=== PATIENT | male | born 1975 | race African-American/Black ===

== ENCOUNTER → 2018-03-28 | Outpatient (REF) | payer OTHER ==
[2018-03-28 21:07] LABS: ALBUMIN 4.4 GM/DL (3.2-5.2); ALBUMIN/GLOBULIN RATIO 1.29 (1.00-1.93); ALKALINE PHOSPHATASE 59 U/L (45-117); ALT/SGPT 67 U/L (12-78); ANION GAP 8 MEQ/L (8-16); AST/SGOT 29 U/L (7-37); BILIRUBIN,TOTAL 0.8 MG/DL (0.2-1.0); BLOOD UREA NITROGEN 13 MG/DL (7-18); CALCIUM LEVEL 8.7 MG/DL (8.5-10.1); CARBON DIOXIDE LEVEL 30 MEQ/L (21-32); CHLORIDE LEVEL 103 MEQ/L (98-107); CREATININE FOR GFR 1.13 MG/DL (0.70-1.30); GLOMERULAR FILTRATION RATE > 60.0 (>60); GLUCOSE, FASTING 101 MG/DL (70-100); SODIUM LEVEL 141 MEQ/L (136-145); TOTAL PROTEIN 7.8 GM/DL (6.4-8.2)
[2018-03-28 21:11] LABS: BASO % 0.7 % (0.0-1.0); EOS # 0.3 10^3/uL (0.0-0.50); EOS % 6.1 % (0.0-3.0); HEMATOCRIT 42.2 % (42.0-52.0); HEMOGLOBIN 13.9 g/dl (13.5-17.5); LYMPH # 2.4 10^3/uL (1.5-4.5); LYMPH % 54.1 % (24.0-44.0); MEAN CORPUSCULAR HEMOGLOBIN 27.2 pg (27.0-33.0); MEAN CORPUSCULAR HGB CONC 32.9 g/dl (32.0-36.5); MEAN CORPUSCULAR VOLUME 82.6 fl (80.0-96.0); MONO # 0.4 10^3/uL (0.0-0.8); NEUTROPHILS # 1.3 10^3/uL (1.8-7.7); NEUTROPHILS % 30.1 % (36.0-66.0); PLATELET COUNT, AUTOMATED 159 10^3/uL (150-450); RED BLOOD COUNT 5.11 10^6/uL (4.30-6.10); RED CELL DISTRIBUTION WIDTH 13.4 % (11.5-14.5); WHITE BLOOD COUNT 4.4 10^3/uL (4.0-10.0)
[2018-04-01 08:06] LABS: OXCARBAZEPINE None Detected ug/mL (10-35)
== END ==
LOC: M LABNEURO 14:13
DX: R25.8 Other abnormal involuntary movements (principal); G40.009 Localization-related (focal) (partial) idiopathic epilepsy and epileptic syndromes with seizures of localized onset, not intractable, without status epilepticus
CPT/HCPCS: 80053

== ENCOUNTER → 2018-07-26 | Outpatient (CLI) | payer OTHER | LOC: M PAIN 15:45 | DX: M47.816 Spondylosis without myelopathy or radiculopathy, lumbar region (principal); G89.29 Other chronic pain; G40.909 Epilepsy, unspecified, not intractable, without status epilepticus; G47.33 Obstructive sleep apnea (adult) (pediatric); Z79.899 Other long term (current) drug therapy; Z86.69 Personal history of other diseases of the nervous system and sense organs; Z87.891 Personal history of nicotine dependence | CPT/HCPCS: G0463 ==

== ENCOUNTER → 2018-08-02 | Outpatient (CLI) | payer OTHER | LOC: M PAIN 15:00 | DX: M47.816 Spondylosis without myelopathy or radiculopathy, lumbar region (principal); G89.29 Other chronic pain; D18.00 Hemangioma unspecified site; G40.909 Epilepsy, unspecified, not intractable, without status epilepticus; G47.33 Obstructive sleep apnea (adult) (pediatric); Z79.899 Other long term (current) drug therapy; Z86.69 Personal history of other diseases of the nervous system and sense organs; Z87.891 Personal history of nicotine dependence | CPT/HCPCS: G0463 ==

== ENCOUNTER → 2018-08-16 | Outpatient (CLI) | payer OTHER | LOC: M PAIN 14:45 | DX: M47.816 Spondylosis without myelopathy or radiculopathy, lumbar region (principal); G89.29 Other chronic pain; D18.00 Hemangioma unspecified site; G47.33 Obstructive sleep apnea (adult) (pediatric); Z79.899 Other long term (current) drug therapy; Z86.69 Personal history of other diseases of the nervous system and sense organs; Z87.891 Personal history of nicotine dependence | CPT/HCPCS: G0463 ==

== ENCOUNTER → 2018-09-03 | Outpatient (CLI) | payer OTHER | LOC: M RAD 09:34 | DX: M51.26 Other intervertebral disc displacement, lumbar region (principal); M51.27 Other intervertebral disc displacement, lumbosacral region | CPT/HCPCS: 72131 ==

== ENCOUNTER → 2018-09-05 | Outpatient (CLI) | payer OTHER | LOC: M PAIN 09:45 | DX: Z53.29 Procedure and treatment not carried out because of patient's decision for other reasons (principal) ==

== ENCOUNTER → 2018-10-03 | Outpatient (REF) | payer OTHER ==
[2018-10-03 13:57] LABS: BASO % 0.3 % (0.0-1.0); EOS # 0.1 10^3/uL (0.0-0.50); EOS % 2.1 % (0.0-3.0); HEMATOCRIT 42.1 % (42.0-52.0); HEMOGLOBIN 13.6 g/dl (13.5-17.5); LYMPH % 52.5 % (24.0-44.0); MEAN CORPUSCULAR HEMOGLOBIN 26.8 pg (27.0-33.0); MEAN CORPUSCULAR HGB CONC 32.3 g/dl (32.0-36.5); MONO # 0.3 10^3/uL (0.0-0.8); MONO % 6.6 % (0.0-5.0); NEUTROPHILS # 1.5 10^3/uL (1.8-7.7); NEUTROPHILS % 38.2 % (36.0-66.0); PLATELET COUNT, AUTOMATED 169 10^3/uL (150-450); RED BLOOD COUNT 5.07 10^6/uL (4.30-6.10); WHITE BLOOD COUNT 3.8 10^3/uL (4.0-10.0)
[2018-10-03 14:03] LABS: ALT/SGPT 48 U/L (12-78); BILIRUBIN,TOTAL 0.5 MG/DL (0.2-1.0); BLOOD UREA NITROGEN 11 MG/DL (7-18); CALCIUM LEVEL 8.3 MG/DL (8.5-10.1); CARBON DIOXIDE LEVEL 31 MEQ/L (21-32); CHLORIDE LEVEL 102 MEQ/L (98-107); CREATININE FOR GFR 1.28 MG/DL (0.70-1.30); GLOMERULAR FILTRATION RATE > 60.0 (>60); GLUCOSE, FASTING 105 MG/DL (70-100); POTASSIUM SERUM 4.5 MEQ/L (3.5-5.1); SODIUM LEVEL 138 MEQ/L (136-145); TOTAL PROTEIN 7.3 GM/DL (6.4-8.2)
[2018-10-06 14:10] LABS: LEVETIRACETAM (KEPPRA) 24.7 ug/mL (10.0-40.0)
== END ==
LOC: M LABNEURO 09:50
PROVIDERS: ATTEND Psychiatry & Neurology Neurology
DX: G40.909 Epilepsy, unspecified, not intractable, without status epilepticus (principal)

== ENCOUNTER → 2018-10-04 | Outpatient (CLI) | payer OTHER ==
--- NOTE | 2018-10-21 23:57 | ECWPNPC ---
PATIENT NAME: VENESSA MARINO MWAMBANDJ : 1975 GENDER: MALE VISIT DATE: 10/04/2018 DISCHARGE DATE: 10/04/18 1222 VISIT LOCKED DATE TIME: PHYSICIAN: RAYSA ALEX MD RESOURCE: RAYSA ALEX MD REASON FOR APPOINTMENT 1. F/U LOW BACK HISTORY OF PRESENT ILLNESS HISTORY OF PRESENT ILLNESS: PAIN THE PATIENT DESCRIBES THE PAIN... 42 YEAR OLD MALE PATIENT WITH A HISTORY OF CHRONIC LOW BACK PAIN. PATIENT DESCRIBES THE PAIN SHARP AND HAVING IT ALL DAY WITH A PAIN SCORE OF 5-9/10 DEPENDING ON PHYSICAL ACTIVITY. THE PATIENT STATES THAT HE HAS EPILEPSY AND A HISTORY OF SEIZURES. 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 PATIENT DENIES UNEXPLAINABLE WEIGHT LOSS, FEVER, CHILLS, NEW CHANGES ON HIS URINARY OR BOWEL CONTROL. FALL RISK SCREENING: SCREENING :NO FALLS IN THE PAST YEAR CURRENT MEDICATIONS TAKING APTIOM 200 MG TABLET 1/2TABLET ORALLY DAILY TAKING APTIOM 400 MG TABLET 1 TABLET ORALLY BID TAKING AMITRIPTYLINE HCL 25 MG TABLET 1 TABLET ORALLY BEFORE BEDTIME TAKING RIBOFLAVIN 100 MG TABLET 1 TABLET ORALLY ONCE A DAY TAKING CLINDAMYCIN PHOS-BENZOYL PEROX 1-5 % GEL 1 APPLICATION TO AFFECTED AREA EXTERNALLY ONCE A DAY TAKING CLOBETASOL PROPIONATE 0.05 % FOAM 1 APPLICATION TO AFFECTED AREA EXTERNALLY DAILY TAKING CELECOXIB 100 MG CAPSULE 1 CAPSULE WITH FOOD ORALLY BID PRN TAKING KEPPRA 1000 MG TABLET 1 TABLET ORALLY TWICE A DAY MEDICATION LIST REVIEWED AND RECONCILED WITH THE PATIENT PAST MEDICAL HISTORY LOW BACK PAIN EPILEPSY JOINT PAIN-BILATERAL KNEES PAIN BILATERAL SOLES OF FEET ANDREAS-USES CPAP NECK PAIN ALLERGIES N.K.D.A. SURGICAL HISTORY APPENDECTOMY AGE 17 REPAIR LEFT MENISCUS TEAR 05/02/2016 FAMILY HISTORY FATHER: 75 YRS MOTHER: 60 YRS 2 SON(S) , 2 DAUGHTER(S) . DAD FROM COMPLICATIONS FROM SURGERY.MOM FROM POISON.PATIENT IS NOT FAMILIAR WITH FAMILY HEALTH HISTORYOLDEST SON-AUTISTIC. SOCIAL HISTORY GENERAL: TOBACCO USE ARE YOU A:FORMER SMOKER HOW LONG HAS IT BEEN SINCE YOU LAST SMOKED?1-5 YEARS ALCOHOL SCREENING DID YOU HAVE A DRINK CONTAINING ALCOHOL IN THE PAST YEAR?NO POINTS0 INTERPRETATIONNEGATIVE RECREATIONAL DRUG USE DRUG USE?NO CAFFEINE CAFFEINE USE?YES HOW OFTEN AND HOW MUCH? 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 AD 10/04/18 REVIEWED WITH PT. HOSPITALIZATION/MAJOR DIAGNOSTIC PROCEDURE EPILEPSY X 3 REVIEW OF SYSTEMS REVIEWED BY: PROVIDER: RAYSA ALEX MD . CONSTITUTIONAL: ANY CHANGE IN YOUR MEDICAL CONDITION? NO . CHILLS NO . FEVER NO . INFECTION: DO YOU HAVE NEW INFECTIONS? NO . DO YOU HAVE HISTORY OF MRSA? NO . MUSCULOSKELETAL: ANY NEW PATTERNS OF PAIN OR NUMBNESS? NO . GASTROENTEROLOGY: ANY NEW CHANGE IN BOWEL CONTROL? NO . GENITOURINARY: ANY NEW CHANGE IN BLADDER CONTROL? NO . IS THERE A CHANCE YOU COULD BE ? NO . HEMATOLOGY/LYMPH: DO YOU TAKE ANY BLOOD THINNERS? (FOR EXAMPLE- COUMADIN, PLAVIX, AGGRENOX, PLATEL, PRADAXA, OR XARELTO) NO . WHEN WAS YOUR LAST DOSE? DATE: TIME: . NEUROLOGY: HAVE YOU FALLEN IN THE PAST 6 MONTHS? NO . ANY NEW EXTREMITY NUMBNESS OR WEAKNESS? NO . CARDIOLOGY: DO YOU HAVE A PACEMAKER OR DEFIBRILLATOR? NO . RESPIRATORY: HAVE YOU BEEN SICK IN THE PAST WEEK? NO . FEVER NO . FLU LIKE SYMPTOMS? NO . COUGH NO . INTEGUMENTARY: DO YOU HAVE ANY RASHES OR OPEN SORES? NO . ALLERGIC/IMMUNO: ARE YOU ALLERGIC TO SHELLFISH OR IV DYE? NO . ANY NEW ALLERGIES? NO . PSYCHIATRIC: DO YOU HAVE THOUGHTS OF HURTING YOURSELF OR SOMEONE ELSE? NO . ARE YOU ABUSED, NEGLECTED, OR IN AN UNSAFE ENVIRONMENT? NO . ENDOCRINOLOGY: ARE YOU DIABETIC? NO . OTHER: DO YOU NEED ANY PRESCRIPTIONS? NO . IF YES, PLEASE LIST: ____ . ANY NEW PROBLEMS WITH YOUR MEDICATIONS? NO . WHEN DID YOU LAST EAT? ____ . WHEN DID YOU LAST DRINK? ____ . WHAT DID YOU LAST DRINK? ____ . NAME OF PERSON DRIVING YOU HOME? ____ . DO YOU HAVE ANY OTHER QUESTIONS OR CONCERNS NO PATIENT HAS NOT VACCINES IN THE PAST 30 DAYS . VITAL SIGNS WT 238.8 LBS, HT 72 IN, BMI 32.38 INDEX, BP 124/81 MM HG, HR 63 /MIN, RR 18 /MIN, TEMP 97.1 F, OXYGEN SAT % 97%, SAFE IN ENV? (Y/N) Y, NA INITIALS SC 11:13, REVIEWED BY: LINDA. EXAMINATION GENERAL EXAMINATION: PATIENT IS ALERT O X 3 AND COOPERATIVE. TENDERNESS OVER PARASPINAL MUSCLE GROUP OF THE LOW BACK. INCREASING PAIN WITH EXTENSION AND LATERAL ROTATION OF THE LOW BACK. CT OF THE SACRUM DONE ON 09/03/18 SHOWS BULGING DISCS AT L4-5 AND L5-S1. ASSESSMENTS SPONDYLOSIS OF LUMBAR REGION WITHOUT MYELOPATHY OR RADICULOPATHY - M47.816 (PRIMARY) LUMBAR FACET ARTHROPATHY - M47.816 INTERVERTEBRAL DISC DISORDER WITH RADICULOPATHY OF LUMBAR REGION - M51.16 TREATMENT SPONDYLOSIS OF LUMBAR REGION WITHOUT MYELOPATHY OR RADICULOPATHY CLINICAL NOTES: WE DISCUSSED SEVERAL ISSUES WITH MR. MARNIO'S PAIN MANAGEMENT CASE. DUE TO THE INCREASED PAIN IN THE LOW BACK, I WOULD LIKE TO MOVE FORWARD WITH A LUMBAR THERAPEUTIC FACET BLOCK WITH IV SEDATION DUE TO THE PATIENTS HISTORY OF EPILEPSY. WE DISCUSSED THE BENEFITS, RISKS, AND ALTERNATIVES OF THE INJECTION AND THE PATIENT WOULD LIKE TO PROCEED. THE PATIENT WILL FOLLOW UP WITH ME FOR A PRE-SEDATION APPOINTMENT IN 2-3 WEEKS. INSTRUCTIONS WERE GIVEN, QUESTIONS WERE ANSWERED, PATIENT REPORTS UNDERSTANDING AND AGREES WITH THE PLAN. I, KEITH ROMERO, DOCUMENTED THE ABOVE INFORMATION ACTING A SCRIBE FOR DR. ALEX. I HAVE REVIEWED THE ABOVE DOCUMENT, WRITTEN BY KEITH ROMERO SCRIBAri AND I VERIFY THAT IT IS ACCURATE. PROCEDURE CODES FA211 ESTABILISHED PATIENT [facility] CHARGE [id number] CURRENT MEDS W/DOSAGES DOCUMENTED D8463 PAIN ASSESS POS TOOL F/U PLAN DOC DISPOSITION & COMMUNICATION FOLLOW UP 3 WEEKS ELECTRONICALLY SIGNED BY RAYSA ALEX MD, MD ON 10/21/2018 AT 03:18 PM EST DISCLAIMER : THIS IS A VISIT SUMMARY EXTRACTED FROM THE [employer] CHART. IT IS NOT A COPY OF THE [employer] PROGRESS NOTE. SIMI
== END ==
LOC: M PAIN 11:00
PROVIDERS: ATTEND Anesthesiology
DX: M47.816 Spondylosis without myelopathy or radiculopathy, lumbar region (principal); M51.16 Intervertebral disc disorders with radiculopathy, lumbar region; G89.29 Other chronic pain; G40.909 Epilepsy, unspecified, not intractable, without status epilepticus; G47.33 Obstructive sleep apnea (adult) (pediatric); Z79.899 Other long term (current) drug therapy; Z87.891 Personal history of nicotine dependence

== ENCOUNTER → 2018-11-07 | Outpatient (CLI) | payer OTHER ==
--- NOTE | 2018-11-26 00:21 | ECWPNPC ---
PATIENT NAME: VENESSA MARINO MWAMBANDJ : 1975 GENDER: MALE VISIT DATE: 11/07/2018 DISCHARGE DATE: 11/07/18 1532 VISIT LOCKED DATE TIME: PHYSICIAN: RAYSA ALEX MD RESOURCE: RAYSA ALEX MD REASON FOR APPOINTMENT 1. PRE SEDATE HISTORY OF PRESENT ILLNESS HISTORY OF PRESENT ILLNESS: PAIN THE PATIENT DESCRIBES THE PAIN... 42 YEAR OLD MALE PATIENT WITH A HISTORY OF CHRONIC LOW BACK PAIN. THE PATIENT DESCRIBES THE PAIN SHARP, STABBING, AND LASTING ALL DAY WITH A PAIN SCORE OF 6-9/10 DEPENDING ON PHYSICAL ACTIVITY. THE PATIENT SAYS THAT HE HAS HAD THIS PAIN FOR MANY YEARS AND IT HAS WORSENED OVER TIME. THE PATIENT ALSO HAS A HISTORY OF EPILEPSY. PATIENT DENIES UNEXPLAINABLE WEIGHT LOSS, FEVER, CHILLS, NEW CHANGES ON HIS URINARY OR BOWEL CONTROL. FALL RISK SCREENING: SCREENING :NO FALLS IN THE PAST YEAR CURRENT MEDICATIONS TAKING APTIOM 200 MG TABLET 1/2TABLET ORALLY DAILY TAKING APTIOM 400 MG TABLET 1 TABLET ORALLY BID TAKING AMITRIPTYLINE HCL 25 MG TABLET 1 TABLET ORALLY BEFORE BEDTIME TAKING RIBOFLAVIN 100 MG TABLET 1 TABLET ORALLY ONCE A DAY TAKING CLINDAMYCIN PHOS-BENZOYL PEROX 1-5 % GEL 1 APPLICATION TO AFFECTED AREA EXTERNALLY ONCE A DAY TAKING CLOBETASOL PROPIONATE 0.05 % FOAM 1 APPLICATION TO AFFECTED AREA EXTERNALLY DAILY TAKING CELECOXIB 100 MG CAPSULE 1 CAPSULE WITH FOOD ORALLY BID PRN TAKING KEPPRA 1000 MG TABLET 1 TABLET ORALLY TWICE A DAY MEDICATION LIST REVIEWED AND RECONCILED WITH THE PATIENT PAST MEDICAL HISTORY LOW BACK PAIN EPILEPSY JOINT PAIN-BILATERAL KNEES PAIN BILATERAL SOLES OF FEET ANDREAS-USES CPAP NECK PAIN DM TYPE II ALLERGIES N.K.D.A. SURGICAL HISTORY APPENDECTOMY AGE 17 REPAIR LEFT MENISCUS TEAR 05/02/2016 FAMILY HISTORY FATHER: 75 YRS MOTHER: 60 YRS 2 SON(S) , 2 DAUGHTER(S) . DAD FROM COMPLICATIONS FROM SURGERY.MOM FROM POISON.PATIENT IS NOT FAMILIAR WITH FAMILY HEALTH HISTORYOLDEST SON-AUTISTIC. SOCIAL HISTORY GENERAL: TOBACCO USE ARE YOU A:FORMER SMOKER HOW LONG HAS IT BEEN SINCE YOU LAST SMOKED?1-5 YEARS ALCOHOL SCREENING DID YOU HAVE A DRINK CONTAINING ALCOHOL IN THE PAST YEAR?NO POINTS0 INTERPRETATIONNEGATIVE RECREATIONAL DRUG USE DRUG USE?NO CAFFEINE CAFFEINE USE?YES HOW OFTEN AND HOW MUCH? 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 AD 10/04/18 REVIEWED WITH PT.REVIEWED WITH PATIENT 11/07/18 7276 JS. HOSPITALIZATION/MAJOR DIAGNOSTIC PROCEDURE EPILEPSY X 3 REVIEW OF SYSTEMS REVIEWED BY: PROVIDER: RAYSA ALEX MD . CONSTITUTIONAL: ANY CHANGE IN YOUR MEDICAL CONDITION? NO . CHILLS NO . FEVER NO . INFECTION: DO YOU HAVE NEW INFECTIONS? NO . DO YOU HAVE HISTORY OF MRSA? NO . MUSCULOSKELETAL: ANY NEW PATTERNS OF PAIN OR NUMBNESS? NO . GASTROENTEROLOGY: ANY NEW CHANGE IN BOWEL CONTROL? NO . GENITOURINARY: ANY NEW CHANGE IN BLADDER CONTROL? NO . IS THERE A CHANCE YOU COULD BE ? NO . HEMATOLOGY/LYMPH: DO YOU TAKE ANY BLOOD THINNERS? (FOR EXAMPLE- COUMADIN, PLAVIX, AGGRENOX, PLATEL, PRADAXA, OR XARELTO) NO . WHEN WAS YOUR LAST DOSE? DATE: TIME: . NEUROLOGY: HAVE YOU FALLEN IN THE PAST 12 MONTHS? NO . ANY NEW EXTREMITY NUMBNESS OR WEAKNESS? NO . CARDIOLOGY: DO YOU HAVE A PACEMAKER OR DEFIBRILLATOR? NO . RESPIRATORY: HAVE YOU BEEN SICK IN THE PAST WEEK? NO . FEVER NO . FLU LIKE SYMPTOMS? NO . COUGH NO . INTEGUMENTARY: DO YOU HAVE ANY RASHES OR OPEN SORES? NO . ALLERGIC/IMMUNO: ARE YOU ALLERGIC TO IV DYE? NO . ANY NEW ALLERGIES? NO . PSYCHIATRIC: DO YOU HAVE THOUGHTS OF HURTING YOURSELF OR SOMEONE ELSE? NO . ARE YOU ABUSED, NEGLECTED, OR IN AN UNSAFE ENVIRONMENT? NO . ENDOCRINOLOGY: ARE YOU DIABETIC? YES, FSBS 95 AT 1700 11/06/18 . OTHER: DO YOU NEED ANY PRESCRIPTIONS? NO . IF YES, PLEASE LIST: ____ . ANY NEW PROBLEMS WITH YOUR MEDICATIONS? NO . WHEN DID YOU LAST EAT? ____ . WHEN DID YOU LAST DRINK? ____ . WHAT DID YOU LAST DRINK? ____ . NAME OF PERSON DRIVING YOU HOME? ____ . DO YOU HAVE ANY OTHER QUESTIONS OR CONCERNS NO . VITAL SIGNS WT 239.6 LBS, HT 72 IN, BMI 32.49 INDEX, BP 142/84 MM HG, HR 76 /MIN, RR 18 /MIN, TEMP 97.2 F, OXYGEN SAT % 100%, SAFE IN ENV? (Y/N) YES, NA INITIALS AW 1430, REVIEWED BY: TAMARA. EXAMINATION GENERAL EXAMINATION: PATIENT IS ALERT O X 3 AND COOPERATIVE. LUNGS CLEAR, TO AUSCULTATION. HEART: NO MURMURS OR GALLOPS; FACIAL CRANIAL NERVES ARE GROSSLY NORMAL. GOOD SYMMETRY OF FACIAL MUSCLE MOVEMENT. NORMAL VISUAL AGUILAR. TENDERNESS IN THE LOW BACK AREA. PAIN INCREASES OVER THE LUMBAR FACET JOINTS WITH EXTENSION AND LATERAL ROTATION OF THE BACK. MRI OF THE LUMBAR SPINE DONE ON 04/24/2018 SHOWS FACET ARTHROPATHY CHANGES AT MULTIPLE LEVELS. ASSESSMENTS SPONDYLOSIS OF LUMBAR REGION WITHOUT MYELOPATHY OR RADICULOPATHY - M47.816 (PRIMARY) TREATMENT SPONDYLOSIS OF LUMBAR REGION WITHOUT MYELOPATHY OR RADICULOPATHY CLINICAL NOTES: WE DISCUSSED SEVERAL ISSUES WITH MR. MARINO'S PAIN MANAGEMENT CASE. DUE TO THE LUMBAR SPONDYLOSIS, I WOULD LIKE TO MOVE FORWARD WITH A THERAPEUTIC LUMBAR FACET BLOCK AT THIS TIME. WE DISCUSSED THE BENEFITS, RISKS, AND ALTERNATIVES OF THE INJECTION AND THE PATIENT WOULD LIKE TO PROCEED. WE WILL BE MOVING FORWARD WITH IV SEDATION DUE TO THE PATIENT'S HISTORY OF EPILEPSY AND ANXIETY ASSOCIATED WITH THE PROCEDURE. THE PATIENT WILL FOLLOW UP A FEW WEEKS AFTER THE INJECTION. INSTRUCTIONS WERE GIVEN, QUESTIONS WERE ANSWERED, PATIENT REPORTS UNDERSTANDING AND AGREES WITH THE PLAN. I, RICHARD KAPLAN, DOCUMENTED THE ABOVE INFORMATION ACTING A SCRIBE FOR DR. ALEX. I HAVE REVIEWED THE ABOVE DOCUMENT, WRITTEN BY RICHARD ONOFRE AND I VERIFY THAT IT IS ACCURATE. PREVENTIVE MEDICINE PAIN CLINIC TEACHING: PROCEDURE TEACHING REVIEWED PROCEDURE INFORMATION WITH PATIENT. ALSO REVIEWED PRE-PROCEDURE INSTRUCTIONS. PATIENT VERBALIZED AN UNDERSTANDING. WELLINGTON STARR 11/07/2018 3:37:47 PM > . PROCEDURE CODES FA211 ESTABILISHED PATIENT [facility] CHARGE [id number] CURRENT MEDS W/DOSAGES DOCUMENTED G8730 PAIN ASSESS POS TOOL F/U PLAN DOC DISPOSITION & COMMUNICATION FOLLOW UP 3 WEEKS ELECTRONICALLY SIGNED BY RAYSA AELX MD, MD ON 11/25/2018 AT 06:24 PM EST DISCLAIMER : THIS IS A VISIT SUMMARY EXTRACTED FROM THE [email or web address] CHART. IT IS NOT A COPY OF THE [employer] PROGRESS NOTE. MTDD
== END ==
LOC: M PAIN 14:00
PROVIDERS: ATTEND Anesthesiology
DX: M47.816 Spondylosis without myelopathy or radiculopathy, lumbar region (principal); G89.29 Other chronic pain; E11.9 Type 2 diabetes mellitus without complications; G40.909 Epilepsy, unspecified, not intractable, without status epilepticus; G47.33 Obstructive sleep apnea (adult) (pediatric); Z79.899 Other long term (current) drug therapy; Z87.891 Personal history of nicotine dependence

== ENCOUNTER → 2018-11-14 | Outpatient (CLI) | payer OTHER ==
[~2018-11-14] MED LIST: BUPIVACAINE HCL 0.25% 30 ML VIAL As Ordered ONE; ISOVUE-M 300 61% 15ML VIAL (Q9967) As Ordered ONE; LIDOCAINE 1% SDV INJ 30 ML VIAL As Ordered ONE; TRIAMCINOLONE ACETONIDE SUSP 40 MG/ML VIAL (J3301) As Ordered ONE
== END ==
LOC: M PAIN 13:00
PROVIDERS: ATTEND Anesthesiology
DX: Z53.29 Procedure and treatment not carried out because of patient's decision for other reasons (principal)

== ENCOUNTER → 2018-11-27 | Outpatient (CLI) | payer OTHER ==
[~2018-11-27] MED LIST changes: +MIDAZOLAM INJ 2 MG/2 ML VIAL (J2250) As Ordered ONE; +fentaNYL 100 MCG/2 ML INJECTION (J3010) As Ordered ONE
--- NOTE | 2018-11-28 13:20 | REP ---
FLUOROSCOPIC GUIDANCE FOR LUMBAR FACET BLOCK: 11/27/2018. Clinical history: Low back pain. Findings: Four images from C-arm fluoroscopy provided to Dr. Ashford of the pain clinic with two needles of the lower most lumbar levels on each side at those facets with contrast adjacent. Fluoroscopy time: 40 seconds. Electronically Signed by Stephan Walters MD 11/28/2018 03:27 P
--- NOTE | 2018-12-13 00:14 | ECWPNPC ---
PATIENT NAME: VENESSA MARINO MWAMBANDJ : 1975 GENDER: MALE VISIT DATE: 11/27/2018 DISCHARGE DATE: 11/27/18 1113 VISIT LOCKED DATE TIME: PHYSICIAN: RAYSA ALEX MD RESOURCE: RAYSA ALEX MD REASON FOR APPOINTMENT 1. LFBT WITH IV SEDATION- CALL DR RAND'S OFFICE TO CHECK IF NEUROLOGIST IS AROUND AND IS AWARE OF THE PROCEDURE HISTORY OF PRESENT ILLNESS HISTORY OF PRESENT ILLNESS: PAIN THE PATIENT DESCRIBES THE PAIN... FALL RISK SCREENING: SCREENING :NO FALLS IN THE PAST YEAR CURRENT MEDICATIONS TAKING APTIOM 200 MG TABLET 1/2TABLET ORALLY DAILY, NOTES: 11/26/18 7PM TAKING APTIOM 400 MG TABLET 1 TABLET ORALLY BID, NOTES: 11/26/18 7PM TAKING AMITRIPTYLINE HCL 25 MG TABLET 1 TABLET ORALLY BEFORE BEDTIME, NOTES: 11/25/18 10PM TAKING RIBOFLAVIN 100 MG TABLET 1 TABLET ORALLY ONCE A DAY, NOTES: 11/25/18 10PM TAKING CLINDAMYCIN PHOS-BENZOYL PEROX 1-5 % GEL 1 APPLICATION TO AFFECTED AREA EXTERNALLY ONCE A DAY, NOTES: 11/25/18 10PM TAKING CLOBETASOL PROPIONATE 0.05 % FOAM 1 APPLICATION TO AFFECTED AREA EXTERNALLY DAILY, NOTES: 11/25/18 10PM TAKING CELECOXIB 100 MG CAPSULE 1 CAPSULE WITH FOOD ORALLY BID PRN, NOTES: 11/25/18 6PM TAKING KEPPRA 1000 MG TABLET 1 TABLET ORALLY TWICE A DAY, NOTES: 11/25/18 10PM MEDICATION LIST REVIEWED AND RECONCILED WITH THE PATIENT PAST MEDICAL HISTORY LOW BACK PAIN EPILEPSY JOINT PAIN-BILATERAL KNEES PAIN BILATERAL SOLES OF FEET ANDREAS-USES CPAP NECK PAIN DM TYPE II ALLERGIES N.K.D.A. SURGICAL HISTORY APPENDECTOMY AGE 17 REPAIR LEFT MENISCUS TEAR 05/02/2016 FAMILY HISTORY FATHER: 75 YRS MOTHER: 60 YRS 2 SON(S) , 2 DAUGHTER(S) . DAD FROM COMPLICATIONS FROM SURGERY.MOM FROM POISON.PATIENT IS NOT FAMILIAR WITH FAMILY HEALTH HISTORYOLDEST SON-AUTISTIC. SOCIAL HISTORY GENERAL: TOBACCO USE ARE YOU A:FORMER SMOKER HOW LONG HAS IT BEEN SINCE YOU LAST SMOKED?1-5 YEARS ALCOHOL SCREENING DID YOU HAVE A DRINK CONTAINING ALCOHOL IN THE PAST YEAR?NO POINTS0 INTERPRETATIONNEGATIVE RECREATIONAL DRUG USE DRUG USE?NO CAFFEINE CAFFEINE USE?YES HOW OFTEN AND HOW MUCH? 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 10/04/18 REVIEWED WITH PT.REVIEWED WITH PATIENT 11/07/18 5286 JS. HOSPITALIZATION/MAJOR DIAGNOSTIC PROCEDURE EPILEPSY X 3 REVIEW OF SYSTEMS REVIEWED BY: PROVIDER: . CONSTITUTIONAL: ANY CHANGE IN YOUR MEDICAL CONDITION? NO . CHILLS NO . FEVER NO . INFECTION: DO YOU HAVE NEW INFECTIONS? NO . DO YOU HAVE HISTORY OF MRSA? NO . MUSCULOSKELETAL: ANY NEW PATTERNS OF PAIN OR NUMBNESS? NO . GASTROENTEROLOGY: ANY NEW CHANGE IN BOWEL CONTROL? NO . GENITOURINARY: ANY NEW CHANGE IN BLADDER CONTROL? NO . IS THERE A CHANCE YOU COULD BE ? NO . HEMATOLOGY/LYMPH: DO YOU TAKE ANY BLOOD THINNERS? (FOR EXAMPLE- COUMADIN, PLAVIX, AGGRENOX, PLATEL, PRADAXA, OR XARELTO) NO . WHEN WAS YOUR LAST DOSE? DATE: TIME: . NEUROLOGY: HAVE YOU FALLEN IN THE PAST 12 MONTHS? NO . ANY NEW EXTREMITY NUMBNESS OR WEAKNESS? NO . CARDIOLOGY: DO YOU HAVE A PACEMAKER OR DEFIBRILLATOR? NO . RESPIRATORY: HAVE YOU BEEN SICK IN THE PAST WEEK? NO . FEVER NO . FLU LIKE SYMPTOMS? NO . COUGH NO . INTEGUMENTARY: DO YOU HAVE ANY RASHES OR OPEN SORES? NO . ALLERGIC/IMMUNO: ARE YOU ALLERGIC TO IV DYE? NO . ANY NEW ALLERGIES? NO . PSYCHIATRIC: DO YOU HAVE THOUGHTS OF HURTING YOURSELF OR SOMEONE ELSE? NO . ARE YOU ABUSED, NEGLECTED, OR IN AN UNSAFE ENVIRONMENT? NO . ENDOCRINOLOGY: ARE YOU DIABETIC? YES, FSBS 125 AT 0900 11/27/18 . OTHER: DO YOU NEED ANY PRESCRIPTIONS? NO . IF YES, PLEASE LIST: ____ . ANY NEW PROBLEMS WITH YOUR MEDICATIONS? NO . WHEN DID YOU LAST EAT? 11-26-182029 . WHEN DID YOU LAST DRINK? 11-26-20182029 . WHAT DID YOU LAST DRINK? WATER . NAME OF PERSON DRIVING YOU HOME? OLEKSANDR . DO YOU HAVE ANY OTHER QUESTIONS OR CONCERNS NO . VITAL SIGNS WT 236.2 LBS, HT 72 IN, BMI 32.03 INDEX, BP 132/81 MM HG, HR 63 /MIN, RR 18 /MIN, TEMP 96.6 F, OXYGEN SAT % 98%, SAFE IN ENV? (Y/N) Y, NA INITIALS WY 08:57, REVIEWED BY: COURTNEY. ASSESSMENTS SPONDYLOSIS OF LUMBAR REGION WITHOUT MYELOPATHY OR RADICULOPATHY - M47.816 (PRIMARY) SPONDYLOSIS OF LUMBOSACRAL REGION WITHOUT MYELOPATHY OR RADICULOPATHY - M47.817 TREATMENT SPONDYLOSIS OF LUMBAR REGION WITHOUT MYELOPATHY OR RADICULOPATHY SMC FACET BLOCK (PAIN)[id number] PROCEDURES PN LUMBAR FACET BLOCK THERAPEUTIC PRE PROCEDURE DIAGNOSIS LUMBAR SPONDYLOSIS, LUMBOSACRAL SPONDYLOSIS POST PROCEDURE DIAGNOSIS LUMBAR SPONDYLOSIS, LUMBOSACRAL SPONDYLOSIS PROCEDURE BILATERAL L4-L5 AND BILATERAL L5-S1 LUMBAR FACET THERAPEUTIC BLOCK SURGEON DR. RAYSA ALEX MECHANICAL SYSTEMS CONTROL ENGINEER NONE ANESTHESIA LOCAL WITH IV SEDATION PRE PROCEDURE NOTE THE PATIENT HAS A HISTORY OF CHRONIC LOW BACK PAIN. I EVALUATE THE PATIENT AND REVIEWED THE CHART. I WENT OVER THE RISKS, ALTERNATIVES, AND BENEFITS ASSOCIATED WITH THIS PROCEDURE. THE PATIENT WOULD LIKE TO PROCEED AND GIVE CONSENT TO PERFORMED THE PROCEDURE. PATIENT WOULD LIKE TO MOVE FORWARD WITH IV SEDATION DUE TO DISCOMFORT, PAIN AND ANXIETY ASSOCIATED WITH THE PROCEDURE. THE PATIENT DENIES UNEXPLAINABLE WEIGHT LOSS, FEVER, CHILLS, OR NEW CHANGES IN URINARY OR BOWEL CONTROL DESCRIPTION OF PROCEDURE THE PATIENT WAS BROUGHT TO THE PROCEDURE ROOM AND PLACED IN THE PRONE POSITION. THE LUMBOSACRAL AREA WAS CLEANED WITH CHLORAPREP SOLUTION AND DRAPED ASEPTICALLY. THE PROCEDURE WAS DONE UNDER STERILE CONDITIONS. I CHECKED LATERALITY AND THE LEVEL WHERE THE PROCEDURE WAS GOING TO BE PERFORMED WITH THE PATIENT AND THE SUPPORTING STAFF AT THE MOMENT OF THE TIME OUT IN THE PROCEDURE ROOM. UNDER FLUOROSCOPIC GUIDANCE, THE TARGET POINT WAS SELECTED AT THE RIGHT AND LEFT L4-L5 AND RIGHT AND LEFT L5-S1 FACET JOINT. TARGET POINT WAS SELECTED AFTER LATERAL ROTATION AND TILT OF THE MAGNIFIER OF THE C-ARM. LIDOCAINE 0.5% WAS USED TO NUMB THE SKIN AND THE SUBCUTANEOUS TISSUE BELOW IT. SPINAL NEEDLES, 22-GAUGE, WERE ADVANCED UNDER FLUOROSCOPIC GUIDANCE AND FOLLOWING PATIENT FEEDBACK UNTIL THE TARGETS WERE TOUCHED. THE POSITION OF THE NEEDLES WAS VERIFIED WITH AP AND LATERAL VIEWS. AFTER PROPER POSITION OF THE NEEDLES WAS ACHIEVED, ISOVUE-M DYE 30% 0.1 ML WAS INJECTED SHOWING ADEQUATE SPREAD OF THE DYE. THEN A SOLUTION OF 1.9 ML OF BUPIVACAINE 0.125% OF KENALOG 10 MG WAS INJECTED AT EACH SITE. PATIENT RECEIVED VERSED 2 MG AND FENTANYL 300 MCG IV DIVIDED DOSES. THERE WAS NO EVIDENCE OF BLOOD, PARESTHESIA OR CEREBROSPINAL FLUID DURING THE PROCEDURE. THE PATIENT WAS SENT TO THE RECOVERY ROOM. THE PATIENT WAS MOVING THE EXTREMITIES AND DOING WELL. THERE WAS NO COMPLICATION DURING THE PROCEDURE. FLUOROSCOPY TIME WAS 40 SECONDS. FACE TO FACE TIME WAS 25 MINUTES. POST PROCEDURE NOTE THE PATIENT WILL BE SEEN IN A FOLLOW UP IN THE NEXT FEW WEEKS. INSTRUCTIONS WERE GIVEN, QUESTIONS WERE ANSWERED, AND THE PATIENT EXPRESSED UNDERSTANDING AND AGREES WITH THE PLAN. I, RICHARD KAPLAN, DOCUMENTED THE ABOVE INFORMATION ACTING A SCRIBE FOR DR. ALEX. I HAVE REVIEWED THE ABOVE DOCUMENT, WRITTEN BY RICHARD QUINNIBAri AND I VERIFY THAT IT IS ACCURATE. PROCEDURE CODES 6045F RADXPS IN END [id number] PXD [id number] INJ PARAVERT F JNT L/S 1 LEV, MODIFIERS: 50 [id number] INJ PARAVERT F JNT L/S 2 LEV, MODIFIERS: 50 [id number] MOD SED SAME PHYS/QHP 5/>YRS 29169 MOD SED SAME PHYS/QHP EA DISPOSITION & COMMUNICATION FOLLOW UP 3 WEEKS ELECTRONICALLY SIGNED BY RAYSA ALEX MD, MD ON 12/12/2018 AT 06:35 AM EST DISCLAIMER : THIS IS A VISIT SUMMARY EXTRACTED FROM THE [facility] CHART. IT IS NOT A COPY OF THE [facility] PROGRESS NOTE. MTDD
== END ==
LOC: M PAIN 08:30
PROVIDERS: ATTEND Anesthesiology
DX: G89.29 Other chronic pain (principal); M47.816 Spondylosis without myelopathy or radiculopathy, lumbar region; M47.817 Spondylosis without myelopathy or radiculopathy, lumbosacral region; E11.9 Type 2 diabetes mellitus without complications; G40.909 Epilepsy, unspecified, not intractable, without status epilepticus; G47.33 Obstructive sleep apnea (adult) (pediatric); Z79.899 Other long term (current) drug therapy; Z87.891 Personal history of nicotine dependence
CPT/HCPCS: 64493; 64494; 99152; 99153; J2250; J3010; J3301; Q9967

== ENCOUNTER → 2019-02-01 | Outpatient (CLI) | payer OTHER ==
--- NOTE | 2019-02-13 23:58 | ECWPNPC ---
PATIENT NAME: VENESSA MARINO MWAMBANDJ : 1975 GENDER: MALE VISIT DATE: 02/01/2019 DISCHARGE DATE: 02/01/19 1557 VISIT LOCKED DATE TIME: PHYSICIAN: RAYSA ALEX MD RESOURCE: RAYSA ALEX MD REASON FOR APPOINTMENT 1. POST PROC/LBP HISTORY OF PRESENT ILLNESS HISTORY OF PRESENT ILLNESS: PAIN THE PATIENT DESCRIBES THE PAIN... 43 YEAR OLD MALE PATIENT WITH A HISTORY OF CHRONIC LOW BACK PAIN. THE PATIENT DESCRIBES THE PAIN SHOOTING, SHARP, AND CONTINUOUS WITH A PAIN SCORE OF 4-7/10 DEPENDING ON PHSYICAL ACTIVITY. THE PATIENT RECEIVED A BILATERAL THERAPEUTIC FACET BLOCK ON 11/27/2018, WHICH IS HELPING WITH FUNCTIONALITY AND WALKING. THE PATIENT SAYS HE IS VERY SATISFIED WITH THE RESULTS FROM THE BLOCK AND SAYS NO FURTHER INTERVENTION IS NEEDED. PATIENT DENIES UNEXPLAINABLE WEIGHT LOSS, FEVER, CHILLS, NEW CHANGES ON HIS URINARY OR BOWEL CONTROL. FALL RISK SCREENING: SCREENING :NO FALLS REPORTED IN THE LAST YEAR CURRENT MEDICATIONS TAKING APTIOM 200 MG TABLET 1/2TABLET ORALLY DAILY TAKING APTIOM 400 MG TABLET 1 TABLET ORALLY BID TAKING AMITRIPTYLINE HCL 25 MG TABLET 1 TABLET ORALLY BEFORE BEDTIME TAKING RIBOFLAVIN 100 MG TABLET 1 TABLET ORALLY ONCE A DAY TAKING CLINDAMYCIN PHOS-BENZOYL PEROX 1-5 % GEL 1 APPLICATION TO AFFECTED AREA EXTERNALLY ONCE A DAY TAKING CLOBETASOL PROPIONATE 0.05 % FOAM 1 APPLICATION TO AFFECTED AREA EXTERNALLY DAILY TAKING CELECOXIB 100 MG CAPSULE 1 CAPSULE WITH FOOD ORALLY BID PRN TAKING KEPPRA 1000 MG TABLET 1 TABLET ORALLY TWICE A DAY MEDICATION LIST REVIEWED AND RECONCILED WITH THE PATIENT PAST MEDICAL HISTORY LOW BACK PAIN EPILEPSY JOINT PAIN-BILATERAL KNEES PAIN BILATERAL SOLES OF FEET ANDREAS-USES CPAP NECK PAIN DM TYPE II ALLERGIES N.K.D.A. SURGICAL HISTORY APPENDECTOMY AGE 17 REPAIR LEFT MENISCUS TEAR 05/02/2016 FAMILY HISTORY FATHER: 75 YRS MOTHER: 60 YRS 2 SON(S) , 2 DAUGHTER(S) . DAD FROM COMPLICATIONS FROM SURGERY.\NMOM FROM POISON.\NPATIENT IS NOT FAMILIAR WITH FAMILY HEALTH HISTORY\NOLDEST SON-AUTISTIC. SOCIAL HISTORY GENERAL: TOBACCO USE ARE YOU A:FORMER SMOKER HOW LONG HAS IT BEEN SINCE YOU LAST SMOKED?1-5 YEARS ALCOHOL SCREENING DID YOU HAVE A DRINK CONTAINING ALCOHOL IN THE PAST YEAR?NO POINTS0 INTERPRETATIONNEGATIVE RECREATIONAL DRUG USE DRUG USE?NO CAFFEINE CAFFEINE USE?YES HOW OFTEN AND HOW MUCH? CUP OF COFFEE/DAY YAZIDISM [id number] HINDUISM LANGUAGE LANGUAGES SPOKEN:IRANIAN EDUCATION LEVEL OF EDUCATION:COLLEGE BACHELOR'S DEGREE LEARNING BARRIERS / SPECIAL NEEDS BARRIERS TO LEARNING?NO HEARING IMPAIRED?YES [place] LEFT EAR VISION IMPAIRED?NO COGNITIVELY IMPAIRED?NO READINESS TO LEARN?YES LEARNING PREFERENCES?YES :DEMONSTRATION/VERBAL INSTRUCTION LEARNING CAPABILITIES PRESENT?YES EMOTIONAL BARRIERS?NO SPECIAL DEVICES?NO KITCHEN HELPER NEEDED?NO DOMESTIC VIOLENCE DO YOU FEEL SAFE IN YOUR ENVIRONMENT?YES OCCUPATION: . 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 10/04/18 REVIEWED WITH PT.REVIEWED WITH PATIENT 11/07/18 2046 JS. HOSPITALIZATION/MAJOR DIAGNOSTIC PROCEDURE EPILEPSY X 3 REVIEW OF SYSTEMS REVIEWED BY: PROVIDER: RAYSA ALEX MD . CONSTITUTIONAL: ANY CHANGE IN YOUR MEDICAL CONDITION? NO . CHILLS NO . FEVER NO . INFECTION: DO YOU HAVE NEW INFECTIONS? NO . DO YOU HAVE HISTORY OF MRSA? NO . MUSCULOSKELETAL: ANY NEW PATTERNS OF PAIN OR NUMBNESS? NO . GASTROENTEROLOGY: ANY NEW CHANGE IN BOWEL CONTROL? NO . GENITOURINARY: ANY NEW CHANGE IN BLADDER CONTROL? NO . IS THERE A CHANCE YOU COULD BE ? NO . HEMATOLOGY/LYMPH: DO YOU TAKE ANY BLOOD THINNERS? (FOR EXAMPLE- COUMADIN, PLAVIX, AGGRENOX, PLATEL, PRADAXA, OR XARELTO) NO . WHEN WAS YOUR LAST DOSE? DATE: TIME: . NEUROLOGY: HAVE YOU FALLEN IN THE PAST 12 MONTHS? NO . ANY NEW EXTREMITY NUMBNESS OR WEAKNESS? NO . CARDIOLOGY: DO YOU HAVE A PACEMAKER OR DEFIBRILLATOR? NO . RESPIRATORY: HAVE YOU BEEN SICK IN THE PAST WEEK? NO . FEVER NO . FLU LIKE SYMPTOMS? NO . COUGH NO . INTEGUMENTARY: DO YOU HAVE ANY RASHES OR OPEN SORES? NO . ALLERGIC/IMMUNO: ARE YOU ALLERGIC TO IV DYE? NO . ANY NEW ALLERGIES? NO . PSYCHIATRIC: DO YOU HAVE THOUGHTS OF HURTING YOURSELF OR SOMEONE ELSE? NO . ARE YOU ABUSED, NEGLECTED, OR IN AN UNSAFE ENVIRONMENT? NO . ENDOCRINOLOGY: ARE YOU DIABETIC? YES . OTHER: DO YOU NEED ANY PRESCRIPTIONS? NO . IF YES, PLEASE LIST: ____ . ANY NEW PROBLEMS WITH YOUR MEDICATIONS? NO . WHEN DID YOU LAST EAT? ____ . WHEN DID YOU LAST DRINK? ____ . WHAT DID YOU LAST DRINK? ____ . NAME OF PERSON DRIVING YOU HOME? ____ . DO YOU HAVE ANY OTHER QUESTIONS OR CONCERNS NO . VITAL SIGNS WT 223.4 LBS, HT 72 IN, BMI 30.30 INDEX, BP 126/81 MM HG, HR 62 /MIN, RR 18 /MIN, TEMP 97.4 F, OXYGEN SAT % 99%, NA INITIALS SC 14:11. EXAMINATION GENERAL EXAMINATION: PATIENT IS ALERT O X 3 AND COOPERATIVE. ASSESSMENTS SPONDYLOSIS OF LUMBAR REGION WITHOUT MYELOPATHY OR RADICULOPATHY - M47.816 (PRIMARY) SPONDYLOSIS OF LUMBOSACRAL REGION WITHOUT MYELOPATHY OR RADICULOPATHY - M47.817 TREATMENT SPONDYLOSIS OF LUMBAR REGION WITHOUT MYELOPATHY OR RADICULOPATHY CLINICAL NOTES: WE DISCUSSED SEVERAL ISSUES WITH MR. MARINO'S PAIN MANAGEMENT CASE. I MENTIONED THE OPTION OF A RADIOFREQUENCY PROCEDURE FOR THE PATIENT IN THE FUTURE. I ALSO SUGGESTED THE PATIENT BEGINS PHYSICAL THERAPY, HOWEVER THE PATIENT SAID HE HAS GYM ACCESS ON POST AND WILL SLOWLY INTEGRATE A LIGHT WORKOUT PLAN DURING HIS DAY. THE PATIENT IS VERY HAPPY FROM THE RESULTS OF HIS LUMBAR FACET BLOCK THAT HAS GIVEN HIM MORE FUNCTIONALITY TO PERFORM DURING HIS DAY. THE PATIENT SAID NO FURTHER INTERVENTION IS NEEDED AT THIS TIME. THE PATIENT WILL FOLLOWUP IN 2 MONTHS, HOWEVER IF THE PAIN COMES BACK SOONER, HE WAS ADVISED TO CALL TO BE SEEN SOONER. INSTRUCTIONS WERE GIVEN, QUESTIONS WERE ANSWERED, PATIENT REPORTS UNDERSTANDING AND AGREES WITH THE PLAN. I, MALIHA WORLEY, DOCUMENTED THE ABOVE INFORMATION ACTING A SCRIBE FOR DR. ALEX. I HAVE REVIEWED THE ABOVE DOCUMENT, WRITTEN BY MALIHA ONOFRE AND I VERIFY THAT IT IS ACCURATE. . PROCEDURE CODES FA211 ESTABILISHED PATIENT [facility] CHARGE V9347 CURRENT MEDS W/DOSAGES DOCUMENTED F0871 PAIN ASSESS POS TOOL F/U PLAN DOC DISPOSITION & COMMUNICATION FOLLOW UP 2 MONTHS (REASON: F/UP) ELECTRONICALLY SIGNED BY RAYSA ALEX MD, MD ON 02/13/2019 AT 12:33 PM EDT DISCLAIMER : THIS IS A VISIT SUMMARY EXTRACTED FROM THE [employer] CHART. IT IS NOT A COPY OF THE [employer] PROGRESS NOTE. MTDD
== END ==
LOC: M PAIN 14:00
PROVIDERS: ATTEND Anesthesiology
DX: M47.816 Spondylosis without myelopathy or radiculopathy, lumbar region (principal); M47.817 Spondylosis without myelopathy or radiculopathy, lumbosacral region; G89.29 Other chronic pain; Z86.69 Personal history of other diseases of the nervous system and sense organs; G47.33 Obstructive sleep apnea (adult) (pediatric); E11.9 Type 2 diabetes mellitus without complications; Z87.891 Personal history of nicotine dependence; Z79.1 Long term (current) use of non-steroidal anti-inflammatories (NSAID); Z79.899 Other long term (current) drug therapy

== ENCOUNTER 2019-05-10 07:31 | Emergency (ER) | payer OTHER ==
[~2019-05-10] VITALS: Ht 188 cm; Wt 100.0 kg
[2019-05-10] MEDS ORDERED: DIVA250T67 PO (07:59)
[2019-05-10] MEDS ORDERED: AMIT25TA PO (07:59)
[2019-05-10] MEDS ORDERED: SERT-155 PO (07:59)
[2019-05-10] MEDS ORDERED: METF10004 PO (07:59)
[2019-05-10] MEDS ORDERED: LEVE500T5 PO (07:59)
[2019-05-10] MEDS ORDERED: [UNRECOGNIZED DRUG - CODE] PO (07:59)
[2019-05-10] MEDS ORDERED: ALIG4CAP PO (07:59)
[2019-05-10] MEDS ORDERED: REFR0.1D OU (07:59)
[2019-05-10 08:22] LABS: BASO % 0.5 % (0.0-1.0); EOS # 0.2 10^3/uL (0.0-0.50); EOS % 3.6 % (0.0-3.0); HEMATOCRIT 40.6 % (42.0-52.0); HEMOGLOBIN 13.2 g/dl (13.5-17.5); LYMPH % 48.4 % (24.0-44.0); MEAN CORPUSCULAR HEMOGLOBIN 28.1 pg (27.0-33.0); MEAN CORPUSCULAR HGB CONC 32.5 g/dl (32.0-36.5); MEAN CORPUSCULAR VOLUME 86.6 fl (80.0-96.0); MONO # 0.5 10^3/uL (0.0-0.8); MONO % 10.9 % (0.0-5.0); NEUTROPHILS # 1.5 10^3/uL (1.8-7.7); NEUTROPHILS % 36.4 % (36.0-66.0); PLATELET COUNT, AUTOMATED 209 10^3/uL (150-450); RED BLOOD COUNT 4.69 10^6/uL (4.30-6.10); WHITE BLOOD COUNT 4.1 10^3/uL (4.0-10.0)
[2019-05-10 08:52] LABS: BLOOD UREA NITROGEN 15 MG/DL (7-18); CALCIUM LEVEL 8.8 MG/DL (8.5-10.1); CARBON DIOXIDE LEVEL 26 MEQ/L (21-32); CHLORIDE LEVEL 108 MEQ/L (98-107); CREATININE FOR GFR 1.31 MG/DL (0.70-1.30); GLOMERULAR FILTRATION RATE > 60.0 (>60); GLUCOSE, FASTING 127 MG/DL (70-100); POTASSIUM SERUM 4.5 MEQ/L (3.5-5.1); SODIUM LEVEL 143 MEQ/L (136-145)
--- NOTE | 2019-05-10 08:52 | REP ---
CT of the brain without IV contrast: There is no hemorrhage. There is no edema, mass effect or midline shift. The cortical stripe is unremarkable. There is mild mucosal thickening in the ethmoid sinuses. Impression: There is no hemorrhage, acute infarct or mass. There is mild mucosal thickening of the ethmoid sinuses. Electronically Signed by Dru Das MD 05/10/2019 08:44 A
[2019-05-10] MEDS ORDERED: levETIRAcetam 250MG TABLET (KEPPRA) PO ONE ×2 (09:30→10:00)
[2019-05-10] MEDS ORDERED: DIVALPROEX 250 MG TAB PO ONE ×2 (09:30→10:00)
[2019-05-10] MEDS ORDERED: LORazepam 1 MG TAB PO STA (09:45)
[2019-05-10] MEDS ORDERED: IBUPROFEN 600 MG TAB PO ONE (10:15)
[2019-05-10 10:16] VITALS: BP 130/76
== END 2019-05-10 10:33 | disposition home or self-care (01) ==
LOC: EDBD 07:31 → M ED 07:31
DX: G40.909 Epilepsy, unspecified, not intractable, without status epilepticus (principal); E11.9 Type 2 diabetes mellitus without complications; E78.00 Pure hypercholesterolemia, unspecified; Z79.899 Other long term (current) drug therapy; Z79.84 Long term (current) use of oral hypoglycemic drugs

== ENCOUNTER → 2019-05-13 | Outpatient (CLI) | payer OTHER ==
[~2019-05-13] MED LIST changes: +ALIG4CAP PO; +AMIT25TA PO; -BUPIVACAINE HCL 0.25% 30 ML VIAL As Ordered ONE; +DIVA250T67 PO; -ISOVUE-M 300 61% 15ML VIAL (Q9967) As Ordered ONE; +LEVE500T5 PO; -LIDOCAINE 1% SDV INJ 30 ML VIAL As Ordered ONE; +METF10004 PO; -MIDAZOLAM INJ 2 MG/2 ML VIAL (J2250) As Ordered ONE; +REFR0.1D OU; +SERT-155 PO; -TRIAMCINOLONE ACETONIDE SUSP 40 MG/ML VIAL (J3301) As Ordered ONE; +[UNRECOGNIZED DRUG - CODE] PO; -fentaNYL 100 MCG/2 ML INJECTION (J3010) As Ordered ONE
--- NOTE | 2019-05-22 01:02 | ECWPNPC ---
PATIENT NAME: VENESSA MARINO MWAMBANDJ : 1975 GENDER: MALE VISIT DATE: 05/13/2019 DISCHARGE DATE: 05/13/19 1511 VISIT LOCKED DATE TIME: PHYSICIAN: RAYSA ALEX MD RESOURCE: RAYSA ALEX MD REASON FOR APPOINTMENT 1. LOWER BACK HISTORY OF PRESENT ILLNESS HISTORY OF PRESENT ILLNESS: PAIN THE PATIENT DESCRIBES THE PAIN... 43 YEAR OLD MALE PATIENT WITH A HISTORY OF CHRONIC LOW BACK PAIN. THE PATIENT DESCRIBES THE PAIN SHARP, STABBING, AND CONTINUOUS WITH A PAIN SCORE OF 6-8/10 DEPENDING ON PHYSICAL ACTIVITY. THE PATIENT SAYS THAT HE HAS HAD THIS PAIN FOR MANY YEARS. THE PATIENT RECEIVED A THERAPEUTIC LUMBAR FACET BLOCK ON 11/27/2018 AND REPORTS HAVING SIGNIFICANT PAIN RELIEF FOR 4 MONTHS, BUT SAYS HIS PAIN HAS STARTED TO RETURN. PATIENT DENIES UNEXPLAINABLE WEIGHT LOSS, FEVER, CHILLS, NEW CHANGES ON HIS URINARY OR BOWEL CONTROL. FALL RISK SCREENING: SCREENING :NO FALLS REPORTED IN THE LAST YEAR CURRENT MEDICATIONS TAKING APTIOM 200 MG TABLET 1/2TABLET ORALLY DAILY TAKING APTIOM 400 MG TABLET 1 TABLET ORALLY BID TAKING AMITRIPTYLINE HCL 25 MG TABLET 1 TABLET ORALLY BEFORE BEDTIME TAKING RIBOFLAVIN 100 MG TABLET 1 TABLET ORALLY ONCE A DAY TAKING CLINDAMYCIN PHOS-BENZOYL PEROX 1-5 % GEL 1 APPLICATION TO AFFECTED AREA EXTERNALLY ONCE A DAY TAKING CLOBETASOL PROPIONATE 0.05 % FOAM 1 APPLICATION TO AFFECTED AREA EXTERNALLY DAILY TAKING CELECOXIB 100 MG CAPSULE 1 CAPSULE WITH FOOD ORALLY BID PRN TAKING KEPPRA 1000 MG TABLET 1 TABLET ORALLY TWICE A DAY MEDICATION LIST REVIEWED AND RECONCILED WITH THE PATIENT PAST MEDICAL HISTORY LOW BACK PAIN EPILEPSY JOINT PAIN-BILATERAL KNEES PAIN BILATERAL SOLES OF FEET ANDREAS-USES CPAP NECK PAIN DM TYPE II ALLERGIES N.K.D.A. SURGICAL HISTORY APPENDECTOMY AGE 17 REPAIR LEFT MENISCUS TEAR 05/02/2016 FAMILY HISTORY FATHER: 75 YRS MOTHER: 60 YRS 2 SON(S) , 2 DAUGHTER(S) . DAD FROM COMPLICATIONS FROM SURGERY.\\NMOM FROM POISON.\\NPATIENT IS NOT FAMILIAR WITH FAMILY HEALTH HISTORY\\NOLDEST SON-AUTISTIC. SOCIAL HISTORY GENERAL: TOBACCO USE ARE YOU A:FORMER SMOKER HOW LONG HAS IT BEEN SINCE YOU LAST SMOKED?1-5 YEARS EDUCATION LEVEL OF EDUCATION:COLLEGE BACHELOR'S DEGREE LANGUAGE LANGUAGES SPOKEN:SYRIAN DOMESTIC VIOLENCE DO YOU FEEL SAFE IN YOUR ENVIRONMENT?YES RECREATIONAL DRUG USE DRUG USE?NO LEARNING BARRIERS / SPECIAL NEEDS BARRIERS TO LEARNING?NO HEARING IMPAIRED?YES [place] LEFT EAR VISION IMPAIRED?NO COGNITIVELY IMPAIRED?NO READINESS TO LEARN?YES LEARNING PREFERENCES?YES :DEMONSTRATION/VERBAL INSTRUCTION LEARNING CAPABILITIES PRESENT?YES EMOTIONAL BARRIERS?NO SPECIAL DEVICES?NO CERTIFIED CAREGIVER NEEDED?NO PAIN CLINIC PFS, CLERGY, PUBLIC HEALTH REFERRALS PFS REFERRAL NEEDED?NO CLERGY REFERRAL NEEDED?NO PUBLIC HEALTH REFERRAL NEEDED?NO WAS THE PROVIDER NOTIFIED OF ANY PERTINENT INFO? N/A HAS THE PATIENT BEEN EDUCATED REGARDING HIS/HER PLAN OF CARE?YES HAS THE PATIENT BEEN EDUCATED REGARDING PAIN, THE RISK FOR PAIN, THE IMPORTANCE OF EFFECTIVE PAIN MANAGEMENT, AND THE PAIN ASSESSMENT PROCESS?YES LATEX QUESTIONNAIRE LATEX ALLERGY : HAVE YOU EVER DEVELOPED ANY TYPE OF REACTION AFTER HANDLING LATEX PRODUCTS SUCH RUBBER GLOVES, CONDOMS, DIAPHRAGMS, BALLOONS, SOCKS, OR UNDERWEAR?NO LATEX ALLERGY : HAVE YOU EVER DEVELOPED ANY TYPE OF REACTION DURING OR AFTER DENTAL APPOINTMENT, VAGINAL/RECTAL EXAMINATION, SURGICAL PROCEDURE, OR ANY OTHER EXPOSURE?NO LATEX RISK : HAVE YOU EVER HAD ANY DIFFICULTY BREATHING OR HIVES AFTER EATING OR HANDLING ANY FRUITS, OR VEGETABLES; SUCH KIWI, BANANAS, STONE FRUITS, OR CHESTNUTSNO LATEX RISK : DO YOU HAVE A PREVIOUS PERSONAL HISTORY OF MORE THAN NINE SURGERIES, SPINA BIFIDA, OR REPEATED CATHERIZATIONS? NO LATEX RISK : ARE YOU FREQUENTLY EXPOSED TO LATEX PRODUCTS IN YOUR OCCUPATION?NO DATE ASKED : 05/13/2019 CAFFEINE CAFFEINE USE?YES HOW OFTEN AND HOW MUCH? CUP OF COFFEE/DAY ADVANCE DIRECTIVE ADVANCE DIRECTIVE DISCUSSED WITH PATIENT:YES 05/13/19 PT DOES NOT HAVE ANY ADVANCED DIRECTIVES AND HE DECLINED INFORMATION ON HCP AT THIS TIME. [id number] ALCOHOL SCREENING DID YOU HAVE A DRINK CONTAINING ALCOHOL IN THE PAST YEAR?NO POINTS0 INTERPRETATIONNEGATIVE OCCUPATION: . 10/04/18 REVIEWED WITH PT.REVIEWED WITH PATIENT 11/07/18 8016 JS. HOSPITALIZATION/MAJOR DIAGNOSTIC PROCEDURE EPILEPSY X 4 REVIEW OF SYSTEMS REVIEWED BY: PROVIDER: RAYSA ALEX MD . CONSTITUTIONAL: ANY CHANGE IN YOUR MEDICAL CONDITION? YES, WAS DISCHARGED FROM [facility] 05/11-ADMITTED FOR EPILEPSY . CHILLS NO . FEVER NO . INFECTION: DO YOU HAVE NEW INFECTIONS? NO . DO YOU HAVE HISTORY OF MRSA? NO . MUSCULOSKELETAL: ANY NEW PATTERNS OF PAIN OR NUMBNESS? NO . GASTROENTEROLOGY: ANY NEW CHANGE IN BOWEL CONTROL? NO . GENITOURINARY: ANY NEW CHANGE IN BLADDER CONTROL? NO . IS THERE A CHANCE YOU COULD BE ? NO . HEMATOLOGY/LYMPH: DO YOU TAKE ANY BLOOD THINNERS? (FOR EXAMPLE- COUMADIN, PLAVIX, AGGRENOX, PLATEL, PRADAXA, OR XARELTO) NO . WHEN WAS YOUR LAST DOSE? DATE: TIME: . NEUROLOGY: HAVE YOU FALLEN IN THE PAST 12 MONTHS? YES, SEVERAL TIMES DUE TO HIS EPILEPSY, NO SERIOUS INJURIES . ANY NEW EXTREMITY NUMBNESS OR WEAKNESS? NO . CARDIOLOGY: DO YOU HAVE A PACEMAKER OR DEFIBRILLATOR? NO . RESPIRATORY: HAVE YOU BEEN SICK IN THE PAST WEEK? YES, EPILEPSY . FEVER NO . FLU LIKE SYMPTOMS? NO . COUGH NO . INTEGUMENTARY: DO YOU HAVE ANY RASHES OR OPEN SORES? NO . ALLERGIC/IMMUNO: ARE YOU ALLERGIC TO IV DYE? NO . ANY NEW ALLERGIES? NO . PSYCHIATRIC: DO YOU HAVE THOUGHTS OF HURTING YOURSELF OR SOMEONE ELSE? NO . ARE YOU ABUSED, NEGLECTED, OR IN AN UNSAFE ENVIRONMENT? NO . ENDOCRINOLOGY: ARE YOU DIABETIC? YES, FSBS 94 THIS A.M . OTHER: DO YOU NEED ANY PRESCRIPTIONS? NO . IF YES, PLEASE LIST: ____ . ANY NEW PROBLEMS WITH YOUR MEDICATIONS? NO . WHEN DID YOU LAST EAT? ____ . WHEN DID YOU LAST DRINK? ____ . WHAT DID YOU LAST DRINK? ____ . NAME OF PERSON DRIVING YOU HOME? ____ . DO YOU HAVE ANY OTHER QUESTIONS OR CONCERNS YES, "CAN I GET A NEW SHOT?" . VITAL SIGNS WT 223.4 LBS, HT 72 IN, BMI 30.30 INDEX, BP 134/83 MM HG, HR 64 /MIN, RR 18 /MIN, TEMP 97.3 F, OXYGEN SAT % 99%, SAFE IN ENV? (Y/N) Y, NA INITIALS AW 1426, REVIEWED BY: AD. EXAMINATION GENERAL EXAMINATION: PATIENT IS ALERT O X 3 AND COOPERATIVE. TENDERNESS IN THE LOW BACK AREA. PAIN INCREASES OVER THE LUMBAR FACET JOINTS WITH EXTENSION AND LATERAL ROTATION OF THE BACK. MRI OF THE LUMBAR SPINE DONE ON 04/17/2018 IS SHOWING FACET ARTHROPATHY CHANGES. ASSESSMENTS SPONDYLOSIS OF LUMBAR REGION WITHOUT MYELOPATHY OR RADICULOPATHY - M47.816 (PRIMARY) TREATMENT SPONDYLOSIS OF LUMBAR REGION WITHOUT MYELOPATHY OR RADICULOPATHY CLINICAL NOTES: WE DISCUSSED SEVERAL ISSUES WITH MR. MARINO'S PAIN MANAGEMENT CASE. DUE TO THE LUMBAR SPONDYLOSIS AND THE PATIENT HAVING GOOD PAIN RELIEF IN THE PAST, I WOULD LIKE TO MOVE FORWARD WITH A BILATERAL L4-L5, L5-S1 THERAPEUTIC LUMBAR FACET BLOCK. WE DISCUSSED THE BENEFITS, RISKS, AND ALTERNATIVES OF THE INJECTION AND THE PATIENT WOULD LIKE TO PROCEED. WE WILL PROCEED WITH IV SEDATION DUE TO THE PATIENT'S HISTORY OF EPILEPSY. THE PATIENT WILL FOLLOW UP IN A FEW WEEKS FOR A PRE SEDATION APPOINTMENT. INSTRUCTIONS WERE GIVEN, QUESTIONS WERE ANSWERED, PATIENT REPORTS UNDERSTANDING AND AGREES WITH THE PLAN. I, RICHADR KAPLAN, DOCUMENTED THE ABOVE INFORMATION ACTING A SCRIBE FOR DR. ALEX. I HAVE REVIEWED THE ABOVE DOCUMENT, WRITTEN BY RICHARD QUINNIBAri AND I VERIFY THAT IT IS ACCURATE. . PROCEDURE CODES FA211 ESTABILISHED PATIENT [facility] CHARGE G8427 CURRENT MEDS W/DOSAGES DOCUMENTED G8730 PAIN ASSESS POS TOOL F/U PLAN DOC DISPOSITION & COMMUNICATION FOLLOW UP REQUESTING AUTH ELECTRONICALLY SIGNED BY RAYSA ALEX MD, MD ON 05/21/2019 AT 02:21 PM EDT DISCLAIMER : THIS IS A VISIT SUMMARY EXTRACTED FROM THE [employer] CHART. IT IS NOT A COPY OF THE [employer] PROGRESS NOTE. MTDD
== END ==
LOC: M PAIN 14:45
PROVIDERS: ATTEND Anesthesiology
DX: M47.816 Spondylosis without myelopathy or radiculopathy, lumbar region (principal); G89.29 Other chronic pain; G40.909 Epilepsy, unspecified, not intractable, without status epilepticus; G47.33 Obstructive sleep apnea (adult) (pediatric); E11.9 Type 2 diabetes mellitus without complications; Z87.891 Personal history of nicotine dependence; Z79.899 Other long term (current) drug therapy

== ENCOUNTER → 2019-05-15 | Outpatient (REF) ==
--- NOTE | 2019-05-15 12:20 | REP ---
Clinical: Pain and disability. Technique: AP, lateral, coned-down views of the lumbosacral spine. Findings: Alignment and lordosis maintained. Vertebral bodies and disc spaces are normal for age. No acute fracture / compression injury or subluxation. No significant degenerative changes noted. Impression: Age-appropriate lumbosacral spine radiographs. Electronically Signed by Anand Sinha MD 05/15/2019 12:11 P
== END ==
LOC: M SMT 12:00
PROVIDERS: ATTEND Internal Medicine
DX: Z00.00 Encounter for general adult medical examination without abnormal findings (principal)

== ENCOUNTER 2019-06-04 18:36 | Emergency (ER) | payer OTHER ==
[~2019-06-04] VITALS: Ht 185.4 cm; Wt 103.2 kg
[2019-06-04 18:37] VITALS: BP 123/58
[2019-06-04] MEDS ORDERED: NS 1,000 ML IV ONE (19:45)
[2019-06-04 19:51] LABS: BASO % 0.2 % (0.0-1.0); EOS # 0.1 10^3/uL (0.0-0.50); EOS % 1.8 % (0.0-3.0); HEMATOCRIT 41.2 % (42.0-52.0); HEMOGLOBIN 13.9 g/dl (13.5-17.5); LYMPH # 1.8 10^3/uL (1.5-4.5); LYMPH % 31.2 % (24.0-44.0); MEAN CORPUSCULAR HEMOGLOBIN 28.1 pg (27.0-33.0); MEAN CORPUSCULAR HGB CONC 33.7 g/dl (32.0-36.5); MEAN CORPUSCULAR VOLUME 83.4 fl (80.0-96.0); MONO # 0.5 10^3/uL (0.0-0.8); MONO % 8.8 % (0.0-5.0); NEUTROPHILS # 3.3 10^3/uL (1.8-7.7); NEUTROPHILS % 57.8 % (36.0-66.0); PLATELET COUNT, AUTOMATED 207 10^3/uL (150-450); RED BLOOD COUNT 4.94 10^6/uL (4.30-6.10); WHITE BLOOD COUNT 5.7 10^3/uL (4.0-10.0)
[2019-06-04 20:10] LABS: ALBUMIN 4.2 GM/DL (3.2-5.2); ALT/SGPT 29 U/L (12-78); AMYLASE 47 U/L (25-115); BILIRUBIN,DIRECT 0.1 MG/DL (0.0-0.2); BILIRUBIN,TOTAL 0.3 MG/DL (0.2-1.0); BLOOD UREA NITROGEN 9 MG/DL (7-18); CALCIUM LEVEL 9.1 MG/DL (8.5-10.1); CARBON DIOXIDE LEVEL 31 MEQ/L (21-32); CHLORIDE LEVEL 98 MEQ/L (98-107); CREATININE FOR GFR 1.02 MG/DL (0.70-1.30); GLOMERULAR FILTRATION RATE > 60.0 (>60); GLUCOSE, FASTING 90 MG/DL (70-100); LIPASE 156 U/L (73-393); POTASSIUM SERUM 4.6 MEQ/L (3.5-5.1); SODIUM LEVEL 135 MEQ/L (136-145); TOTAL PROTEIN 7.7 GM/DL (6.4-8.2)
--- NOTE | 2019-06-04 21:17 | REPVR ---
EXAM: US Scrotum EXAM DATE/TIME: 06/04/2019 9:08 PM CLINICAL HISTORY: 43 years old, male; Scrotum pain; Additional info: Bilateral testicular pain TECHNIQUE: Imaging protocol: Real-time ultrasound of the scrotum and contents with color Doppler and image documentation. COMPARISON: No relevant prior studies available. FINDINGS: Right Testicle: The right testis measures 4.7 x 2.4 x 3.1 cm. It is homogeneous in echotexture, without demonstrated lesion. There is normal internal flow, without torsion. Resistive index 0.57. Left Testicle: The left testis measures 4.2 x 2.0 x 3.0 cm. It is homogeneous in echotexture, without demonstrated lesion. There is normal internal flow, without torsion. Resistive index 0.48. Epididymides: The right epididymal head measures 7 mm in thickness and appears unremarkable. The left epididymal head measures 6 mm in thickness and appears unremarkable. Scrotum: No demonstrated hydrocele or varicocele. IMPRESSION: Normal testicular ultrasound. No evidence of torsion. Electronically signed by: Lukas Burgos On 06/04/2019 21:17:15 PM
[2019-06-04 21:28] LABS: CHLAMYDIA DNA AMPLIFICATION NEGATIVE (NEGATIVE); GC DNA AMPLIFICATION NEGATIVE (NEGATIVE)
--- NOTE | 2019-06-04 22:46 | REPVR ---
EXAM: CT Abdomen and Pelvis Without Contrast EXAM DATE/TIME: 06/04/2019 10:32 PM CLINICAL HISTORY: 43 years old, male; Abdominal pain; Additional info: Blood in ua, pelvic pain TECHNIQUE: Imaging protocol: Axial computed tomography images of the abdomen and pelvis without contrast. Radiation optimization: All CT scans at this facility use at least one of these dose optimization techniques: automated exposure control; mA and/or kV adjustment per patient size (includes targeted exams where dose is matched to clinical indication); or iterative reconstruction. COMPARISON: SPINE LUMBOSACRAL PARTIAL 05/15/2019 12:09 PM (report not provided) FINDINGS: Limitations: Evaluation is somewhat limited by lack of IV contrast. Lungs: The visualized lung bases demonstrate minor dependent atelectasis. Liver: Grossly unremarkable. Gallbladder and bile ducts: No gallstones are evident, but ultrasound would be more sensitive. No gross biliary ductal dilatation. Pancreas: Grossly unremarkable. Spleen: Grossly unremarkable. Adrenals: Grossly unremarkable. Kidneys and ureters: Grossly unremarkable. No hydronephrosis or renal or ureteral calculus. Stomach and bowel: The unopacified small bowel is not significantly distended to suggest obstruction. The large bowel is grossly unremarkable in appearance. Appendix: The appendix appears normal where at least partially visualized, and there is no inflammatory change in the region. Intraperitoneal space: Normal. No free air. No significant fluid collection. Vasculature: Normal. No abdominal aortic aneurysm. Lymph nodes: No gross pathologic lymphadenopathy. Bladder: Question mild wall thickening of the urinary bladder. Reproductive: Unremarkable as visualized. Bones/joints: Mild degenerative changes involve the spine. Soft tissues: A small fat containing umbilical hernia is noted. IMPRESSION: 1. No hydronephrosis or renal or ureteral calculus. 2. Question mild wall thickening of the urinary bladder. Correlate regarding possible cystitis. 3. Small fat containing umbilical hernia. Electronically signed by: Lukas Burgos On 06/04/2019 22:45:54 PM
[2019-06-04] MEDS ORDERED: MACR100C43 PO (23:06)
[2019-06-04] MEDS ORDERED: NITROFURANTOIN (MACROBID) 100 MG CAP PO ONE (23:15)
== END 2019-06-04 23:19 | disposition home or self-care (01) ==
LOC: M ED 19:16
DX: N30.00 Acute cystitis without hematuria (principal); K59.00 Constipation, unspecified; N50.811 Right testicular pain; N50.812 Left testicular pain; E11.9 Type 2 diabetes mellitus without complications; E78.5 Hyperlipidemia, unspecified; G40.909 Epilepsy, unspecified, not intractable, without status epilepticus; Z79.899 Other long term (current) drug therapy; Z79.84 Long term (current) use of oral hypoglycemic drugs
CPT/HCPCS: 36415; 74176; 76870; 80048; 80076; 81001; 81002; 82150; 83690; 85025; 87088; 87186; 87491; 87591; 93976; 99284; G0463

== ENCOUNTER 2019-08-23 12:02 | Emergency (ER) | payer OTHER ==
[~2019-08-23] VITALS: Ht 188 cm; Wt 109.1 kg
[~2019-08-23 12:02] MED LIST changes: +MACR100C43 PO; -SERT-155 PO; +SERT50TA29 PO
[2019-08-23] MEDS ORDERED: [UNRECOGNIZED DRUG - CODE] PO (12:56)
[2019-08-23] MEDS ORDERED: SILD50TA PO (12:56)
[2019-08-23] MEDS ORDERED: DIVA500T94 PO (12:56)
[2019-08-23] MEDS ORDERED: MIRA3350 PO (12:56)
[2019-08-23 13:57] LABS: BASO % 0.5 % (0.0-1.0); EOS # 0.2 10^3/uL (0.0-0.5); EOS % 3.5 % (0.0-3.0); HEMATOCRIT 44.8 % (42.0-52.0); HEMOGLOBIN 14.4 g/dl (13.5-17.5); LYMPH # 2.1 10^3/uL (1.5-5.0); LYMPH % 49.1 % (24.0-44.0); MEAN CORPUSCULAR HEMOGLOBIN 27.1 pg (27.0-33.0); MEAN CORPUSCULAR HGB CONC 32.1 g/dl (32.0-36.5); MEAN CORPUSCULAR VOLUME 84.2 fl (80.0-96.0); MONO # 0.5 10^3/uL (0.0-0.8); MONO % 11.3 % (0.0-5.0); NEUTROPHILS # 1.5 10^3/uL (1.5-8.5); NEUTROPHILS % 35.4 % (36.0-66.0); PLATELET COUNT, AUTOMATED 179 10^3/uL (150-450); RED BLOOD COUNT 5.32 10^6/uL (4.30-6.10); WHITE BLOOD COUNT 4.3 10^3/uL (4.0-10.0)
--- NOTE | 2019-08-23 14:12 | REP ---
Right hand series: Four views. History: Swelling and redness and warmth. Findings: Four views of the right hand demonstrate normal bones, joints, and soft tissues. No fracture or subluxation is seen. No opaque foreign body noted. Impression: Negative right hand radiographs. Electronically Signed by Panchito Higgins MD 08/23/2019 02:04 P
[2019-08-23 14:23] LABS: C REACTIVE PROTEIN QUANTITATIV < 0.30 MG/DL (0.00-0.30); URIC ACID 6.6 MG/DL (3.5-7.2)
[2019-08-23 14:35] LABS: ERYTHROCYTE SEDIMENTATION RATE 6 mm/hr (0-15)
[2019-08-23 15:02] VITALS: BP 127/81
== END 2019-08-23 15:08 | disposition home or self-care (01) ==
LOC: M ED 12:02
DX: M79.644 Pain in right finger(s) (principal); M25.531 Pain in right wrist

== ENCOUNTER 2019-08-26 03:32 | Emergency (ER) | payer OTHER ==
[~2019-08-26 03:32] MED LIST changes: +DIVA500T94 PO; +MIRA3350 PO; +SILD50TA PO
[2019-08-26] MEDS ORDERED: NS 1,000 ML IV ONE (03:45)
[2019-08-26] MEDS ORDERED: levETIRAcetam INJection 1,000 MG in D5W 100 ML IV ONE (03:45)
[2019-08-26 04:16] LABS: HEMATOCRIT 50.8 % (42.0-52.0); HEMOGLOBIN 15.2 g/dl (13.5-17.5); MEAN CORPUSCULAR HGB CONC 29.9 g/dl (32.0-36.5); MEAN CORPUSCULAR VOLUME 90.2 fl (80.0-96.0); PLATELET COUNT, AUTOMATED 254 10^3/uL (150-450); RED BLOOD COUNT 5.63 10^6/uL (4.30-6.10)
[2019-08-26 04:17] LABS: WHITE BLOOD COUNT 17.6 10^3/uL (4.0-10.0)
[2019-08-26 04:32] LABS: ATYPICAL LYMPH 2 % (0-5); BASOPHILS 1 % (0-1); EOSINOPHILS 4 % (0-3); LYMPHOCYTES 69 % (16-44); MONOCYTES 9 % (0-5); NEUTROPHILS 15 % (28-66)
[2019-08-26 04:33] LABS: HYPOCHROMASIA 2+; PLATELET CLUMPS SMALL AMT; PLATELET ESTIMATE NORMAL (NORMAL)
--- NOTE | 2019-08-26 05:02 | REPVR ---
PROCEDURE INFORMATION: Exam: CT Head Without Contrast Exam date and time: 08/26/19 (4:22am) Clinical history: 43 year old male. Seizure. Possible injury S/P seizure. TECHNIQUE: Imaging protocol: Computed tomography of the head without contrast. Radiation optimization: All CT scans at this facility use at least one of these dose optimization techniques: automated exposure control; mA and/or kV adjustment per patient size (includes targeted exams where dose is matched to clinical indication); or iterative reconstruction. COMPARISON: CT HEAD of 05/10/19 FINDINGS: Brain: Ayxp-im-hkjukhhg atrophic changes (out of proportion to the stated age of the patient). No acute hemorrhage. No mass effect. Ventricles: Normal. No ventriculomegaly. Bones/joints: Unremarkable. No acute fracture. Sinuses: No air-fluid levels. Scattered paranasal sinus membrane thickening Mastoid air cells: Visualized mastoid air cells are well aerated. Soft tissues: Unremarkable. IMPRESSION: No acute intracranial pathology is appreciated. Jkyv-wo-dgcemois atrophic changes (out of proportion to the stated age of the patient). Electronically signed by: Deidre Lopez On 08/26/2019 05:01:55 AM
[2019-08-26 05:10] LABS: CALCIUM LEVEL 9.4 MG/DL (8.5-10.1); CREATININE FOR GFR 2.02 MG/DL (0.70-1.30); GLOMERULAR FILTRATION RATE 47.2 (>60); POTASSIUM SERUM 3.8 MEQ/L (3.5-5.1); THYROID STIMULATING HORMONE 5.21 uIU/ML (0.358-3.740); VALPROIC ACID (DEPAKOTE) 6.8 UG/ML (50.0-100.0)
[2019-08-26] MEDS ORDERED: DIVALPROEX 500 MG TAB PO ONE (05:15)
[2019-08-26] MEDS ORDERED: NS 500 ML IV ONE (05:15)
--- NOTE | 2019-08-26 07:09 | ED PDOC ---
Post-Departure Follow-Up radiology report faxed to [facility] Suly Livingston MD Aug 26, 2019 07:09
[2019-08-26 08:45] VITALS: BP 129/72
== END 2019-08-26 08:55 | disposition home or self-care (01) ==
LOC: M ED 03:32
DX: G40.909 Epilepsy, unspecified, not intractable, without status epilepticus (principal); Z91.14 Patient's other noncompliance with medication regimen; E86.0 Dehydration; E11.9 Type 2 diabetes mellitus without complications; Z79.899 Other long term (current) drug therapy
CPT/HCPCS: 70450; 80048; 80164; 80180; 84443; 85025; 93041; 94760; 96374; 99285; J1953

== ENCOUNTER → 2019-09-25 | Outpatient (CLI) | payer OTHER ==
--- NOTE | 2019-10-02 00:32 | ECWPNPC ---
PATIENT NAME: VENESSA MARINO MWAMBANDJ : 1975 GENDER: MALE VISIT DATE: 09/25/2019 DISCHARGE DATE: 09/25/19 1503 VISIT LOCKED DATE TIME: PHYSICIAN: RAYSA ALEX MD RESOURCE: RAYSA ALEX MD REASON FOR APPOINTMENT 1. PRE SEDATE HISTORY OF PRESENT ILLNESS HISTORY OF PRESENT ILLNESS: PAIN THE PATIENT DESCRIBES THE PAIN... 43 YEAR OLD MALE PATIENT WITH A HISTORY OF CHRONIC LOW BACK PAIN. THE PATIENT DESCRIBES THE PAIN SORE, SHARP, AND CONTINUOUS WITH A PAIN SCORE OF 4-7/10 DEPENDING ON PHYSICAL ACTIVITY. THE PATIENT STATES HE HAS BEEN SUFFERING FROM HIS LOW BACK PAIN FOR MORE THAN A YEAR. THE PATIENT RECEIVED A BILATERAL L4-L5, L5-S1 LUMBAR THERAPEUTIC FACET BLOCK ON 11/27/2018, WHICH HE SAYS PROVIDED HIM WITH GOOD PAIN RELIEF AND INCREASED FUNCTIONALITY FOR SEVERAL MONTHS. THE PATIENT SAYS HIS PAIN HAS RETURNED AND HE WOULD LIKE ANOTHER LUMBAR FACET BLOCK. PATIENT DENIES UNEXPLAINABLE WEIGHT LOSS, FEVER, CHILLS, NEW CHANGES ON HIS URINARY OR BOWEL CONTROL. FALL RISK SCREENING: SCREENING :NO FALLS REPORTED IN THE LAST YEAR CURRENT MEDICATIONS TAKING AMITRIPTYLINE HCL 25 MG TABLET 1 TABLET ORALLY BEFORE BEDTIME TAKING RIBOFLAVIN 100 MG TABLET 1 TABLET ORALLY ONCE A DAY TAKING CELECOXIB 100 MG CAPSULE 1 CAPSULE WITH FOOD ORALLY BID PRN TAKING APTIOM 600 MG TABLET 1 TABLET ORALLY TWICE A DAY TAKING KEPPRA 250 MG TABLET 1 TABLET ORALLY TWICE A DAY TAKING DEPAKOTE 500 MG TABLET DELAYED RELEASE 1 TABLET ORALLY TWICE A DAY TAKING METFORMIN HCL 500 MG TABLET 1 TABLET WITH A MEAL ORALLY ONCE A DAY MEDICATION LIST REVIEWED AND RECONCILED WITH THE PATIENT PAST MEDICAL HISTORY LOW BACK PAIN EPILEPSY JOINT PAIN-BILATERAL KNEES PAIN BILATERAL SOLES OF FEET ANDREAS-USES CPAP NECK PAIN DM TYPE II ALLERGIES N.K.D.A. SURGICAL HISTORY APPENDECTOMY AGE 17 REPAIR LEFT MENISCUS TEAR 05/02/2016 FAMILY HISTORY FATHER: 75 YRS MOTHER: 60 YRS 2 SON(S) , 2 DAUGHTER(S) . DAD FROM COMPLICATIONS FROM SURGERY.\NMOM FROM POISON.\NPATIENT IS NOT FAMILIAR WITH FAMILY HEALTH HISTORY\NOLDEST SON-AUTISTIC. 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 N/A HAS THE PATIENT BEEN EDUCATED REGARDING HIS/HER PLAN OF CARE?YES HAS THE PATIENT BEEN EDUCATED REGARDING PAIN, THE RISK FOR PAIN, THE IMPORTANCE OF EFFECTIVE PAIN MANAGEMENT, AND THE PAIN ASSESSMENT PROCESS?YES LATEX QUESTIONNAIRE LATEX ALLERGY : HAVE YOU EVER DEVELOPED ANY TYPE OF REACTION AFTER HANDLING LATEX PRODUCTS SUCH RUBBER GLOVES, CONDOMS, DIAPHRAGMS, BALLOONS, SOCKS, OR UNDERWEAR?NO LATEX ALLERGY : HAVE YOU EVER DEVELOPED ANY TYPE OF REACTION DURING OR AFTER DENTAL APPOINTMENT, VAGINAL/RECTAL EXAMINATION, SURGICAL PROCEDURE, OR ANY OTHER EXPOSURE?NO DATE ASKED : 05/13/2019 LATEX RISK : HAVE YOU EVER HAD ANY DIFFICULTY BREATHING OR HIVES AFTER EATING OR HANDLING ANY FRUITS, OR VEGETABLES; SUCH KIWI, BANANAS, STONE FRUITS, OR CHESTNUTSNO LATEX RISK : DO YOU HAVE A PREVIOUS PERSONAL HISTORY OF MORE THAN NINE SURGERIES, SPINA BIFIDA, OR REPEATED CATHERIZATIONS? NO LATEX RISK : ARE YOU FREQUENTLY EXPOSED TO LATEX PRODUCTS IN YOUR OCCUPATION?NO CAFFEINE CAFFEINE USE?YES HOW OFTEN AND HOW MUCH? CUP OF COFFEE/DAY ADVANCE DIRECTIVE ADVANCE DIRECTIVE DISCUSSED WITH PATIENT:YES 09/25/2019 PT DOES NOT HAVE ANY ADVANCED DIRECTIVES AND HE DECLINED INFORMATION ON HCP AT THIS TIME. [facility] [id number] SCIENTOLOGIST ALCOHOL SCREENING DID YOU HAVE A DRINK CONTAINING ALCOHOL IN THE PAST YEAR?NO POINTS0 INTERPRETATIONNEGATIVE OCCUPATION: . 10/04/18 REVIEWED WITH PT.REVIEWED WITH PATIENT 11/07/18 1446 JSREVIEWED WITH PATIENT 09/25/2019 [facility]. HOSPITALIZATION/MAJOR DIAGNOSTIC PROCEDURE EPILEPSY X 4 REVIEW OF SYSTEMS REVIEWED BY: PROVIDER: RAYSA ALEX MD . CONSTITUTIONAL: ANY CHANGE IN YOUR MEDICAL CONDITION? NO . CHILLS NO . FEVER NO . INFECTION: DO YOU HAVE NEW INFECTIONS? NO . DO YOU HAVE HISTORY OF MRSA? NO . MUSCULOSKELETAL: ANY NEW PATTERNS OF PAIN OR NUMBNESS? NO . GASTROENTEROLOGY: ANY NEW CHANGE IN BOWEL CONTROL? NO . GENITOURINARY: ANY NEW CHANGE IN BLADDER CONTROL? NO . IS THERE A CHANCE YOU COULD BE ? NO . HEMATOLOGY/LYMPH: DO YOU TAKE ANY BLOOD THINNERS? (FOR EXAMPLE- COUMADIN, PLAVIX, AGGRENOX, PLATEL, PRADAXA, OR XARELTO) NO . WHEN WAS YOUR LAST DOSE? DATE: TIME: . NEUROLOGY: HAVE YOU FALLEN IN THE PAST 12 MONTHS? NO . ANY NEW EXTREMITY NUMBNESS OR WEAKNESS? NO . CARDIOLOGY: DO YOU HAVE A PACEMAKER OR DEFIBRILLATOR? NO . RESPIRATORY: HAVE YOU BEEN SICK IN THE PAST WEEK? NO . FEVER NO . FLU LIKE SYMPTOMS? NO . COUGH NO . INTEGUMENTARY: DO YOU HAVE ANY RASHES OR OPEN SORES? NO . ALLERGIC/IMMUNO: ARE YOU ALLERGIC TO IV DYE? NO . ANY NEW ALLERGIES? NO . PSYCHIATRIC: DO YOU HAVE THOUGHTS OF HURTING YOURSELF OR SOMEONE ELSE? NO . ARE YOU ABUSED, NEGLECTED, OR IN AN UNSAFE ENVIRONMENT? NO . ENDOCRINOLOGY: ARE YOU DIABETIC? YES . OTHER: DO YOU NEED ANY PRESCRIPTIONS? NONE PRESCRIBED THROUGH PAIN MANAGEMENT . IF YES, PLEASE LIST: ____ . ANY NEW PROBLEMS WITH YOUR MEDICATIONS? NO . WHEN DID YOU LAST EAT? ____ . WHEN DID YOU LAST DRINK? ____ . WHAT DID YOU LAST DRINK? ____ . NAME OF PERSON DRIVING YOU HOME? ____ . DO YOU HAVE ANY OTHER QUESTIONS OR CONCERNS NO . VITAL SIGNS WT 233.4 LBS, HT 72 IN, BMI 31.65 INDEX, BP 122/71 MM HG, HR 82 /MIN, RR 18 /MIN, TEMP 97.4 F, OXYGEN SAT % 98%, SAFE IN ENV? (Y/N) YES, NA INITIALS SC 14:04, REVIEWED BY: JUICE. EXAMINATION GENERAL EXAMINATION: PATIENT IS ALERT O X 3 AND COOPERATIVE. LUNGS CLEAR, TO AUSCULTATION. HEART: NO MURMURS OR GALLOPS; FACIAL CRANIAL NERVES ARE GROSSLY NORMAL. GOOD SYMMETRY OF FACIAL MUSCLE MOVEMENT. NORMAL VISUAL AGUILAR. TENDERNESS OVER THE PARASPINAL MUSCLE GROUP OF THE LOW BACK. PAIN INCREASES OVER THE LUMBAR FACET JOINTS WITH EXTENSION AND LATERAL ROTATION OF THE BACK. LEFT LEG IS WEAKER AT EXTENSION AND FLEXION. MRI OF THE LUMBAR SPINE DONE ON 04/24/2018 SHOWS FACET ARTHROPATHY CHANGES. ASSESSMENTS SPONDYLOSIS WITHOUT MYELOPATHY OR RADICULOPATHY, LUMBAR REGION - M47.816 (PRIMARY) TREATMENT SPONDYLOSIS WITHOUT MYELOPATHY OR RADICULOPATHY, LUMBAR REGION CLINICAL NOTES: WE DISCUSSED SEVERAL ISSUES WITH MR. MARINO'S PAIN MANAGEMENT CASE. DUE TO THE LUMBAR SPONDYLOSIS AND ACUTE PAIN OVER THE LAST MONTH, I WOULD LIKE TO MOVE FORWARD WITH A BILATERAL L4-L5, L5-S1 THERAPEUTIC LUMBAR FACET BLOCK AT THIS TIME. WE DISCUSSED THE BENEFITS, RISKS, AND ALTERNATIVES OF THE INJECTION AND THE PATIENT WOULD LIKE TO PROCEED. THE PATIENT WOULD LIKE TO MOVE FORWARD WITH IV SEDATION DUE TO DISCOMFORT, PAIN, AND ANXIETY ASSOCIATED WITH THE PROCEDURE. THE PATIENT WILL FOLLOW UP IN SEVERAL WEEKS TO SEE HOW THE INJECTION IS HELPING WITH HIS PAIN. INSTRUCTIONS WERE GIVEN, QUESTIONS WERE ANSWERED, PATIENT REPORTS UNDERSTANDING AND AGREES WITH THE PLAN. I, MALIHA WORLEY, DOCUMENTED THE ABOVE INFORMATION ACTING A SCRIBE FOR DR. ALEX. I HAVE REVIEWED THE ABOVE DOCUMENT, WRITTEN BY MALIHA ONOFRE AND I VERIFY THAT IT IS ACCURATE. . PROCEDURE CODES FA211 ESTABILISHED PATIENT [facility] FACILITY CHARGE G8427 CURRENT MEDS W/DOSAGES DOCUMENTED G8730 PAIN ASSESS POS TOOL F/U PLAN DOC DISPOSITION & COMMUNICATION FOLLOW UP 3 WEEKS ELECTRONICALLY SIGNED BY RAYSA ALEX MD, MD ON 10/01/2019 AT 10:58 AM EST DISCLAIMER : THIS IS A VISIT SUMMARY EXTRACTED FROM THE [employer] CHART. IT IS NOT A COPY OF THE [employer] PROGRESS NOTE. MTDEladio
== END ==
LOC: M PAIN 13:45
PROVIDERS: ATTEND Anesthesiology
DX: M47.816 Spondylosis without myelopathy or radiculopathy, lumbar region (principal); G89.29 Other chronic pain; G40.909 Epilepsy, unspecified, not intractable, without status epilepticus; G47.33 Obstructive sleep apnea (adult) (pediatric); E11.9 Type 2 diabetes mellitus without complications; Z87.891 Personal history of nicotine dependence; Z79.84 Long term (current) use of oral hypoglycemic drugs; Z79.899 Other long term (current) drug therapy

== ENCOUNTER → 2019-10-01 | Outpatient (CLI) | payer OTHER ==
[~2019-10-01] MED LIST changes: +BUPIVACAINE HCL 0.25% 30 ML VIAL As Ordered ONE; +ISOVUE-M 300 61% 15ML VIAL (Q9967) As Ordered ONE; +LIDOCAINE 1% SDV INJ 30 ML VIAL As Ordered ONE; +MIDAZOLAM INJ 2 MG/2 ML VIAL (J2250) As Ordered ONE; +TRIAMCINOLONE ACETONIDE SUSP 40 MG/ML VIAL (J3301) As Ordered ONE; +fentaNYL 100 MCG/2 ML INJECTION (J3010) As Ordered ONE
--- NOTE | 2019-10-01 13:36 | REP ---
Partial lumbar spine series: To views . History: Injection procedure for pain. 47 seconds of fluoroscopy time is reported. Findings: A sequence of two fluoroscopically obtained last image hold procedural spot radiographs of the lumbar spine document needle position and contrast injection associated with injection procedure. Electronically Signed by Panchito Higgins MD 10/01/2019 01:29 P
--- NOTE | 2019-10-03 04:30 | ECWPNPC ---
PATIENT NAME: VENESSA MARINO MWAMBANDJ : 1975 GENDER: MALE VISIT DATE: 10/01/2019 DISCHARGE DATE: 10/01/19 1203 VISIT LOCKED DATE TIME: PHYSICIAN: RAYSA ALEX MD RESOURCE: RAYSA ALEX MD REASON FOR APPOINTMENT 1. BILATERAL L4-L5, L5-S1 LFBT WITH IV SEDATION HISTORY OF PRESENT ILLNESS HISTORY OF PRESENT ILLNESS: PAIN THE PATIENT DESCRIBES THE PAIN... FALL RISK SCREENING: SCREENING :NO FALLS REPORTED IN THE LAST YEAR CURRENT MEDICATIONS TAKING AMITRIPTYLINE HCL 25 MG TABLET 1 TABLET ORALLY BEFORE BEDTIME, NOTES: TAKES NEEDED 09/29 TAKING RIBOFLAVIN 100 MG TABLET 1 TABLET ORALLY ONCE A DAY, NOTES: 09/29 2300 TAKING CELECOXIB 100 MG CAPSULE 1 CAPSULE WITH FOOD ORALLY BID PRN, NOTES: 09/28 TAKING APTIOM 600 MG TABLET 1 TABLET ORALLY TWICE A DAY, NOTES: 09/30 2300 TAKING KEPPRA 250 MG TABLET 1 TABLET ORALLY TWICE A DAY, NOTES: 09/30 2300 TAKING DEPAKOTE 500 MG TABLET DELAYED RELEASE 1 TABLET ORALLY TWICE A DAY, NOTES: 09/30 2300 TAKING METFORMIN HCL 500 MG TABLET 1 TABLET WITH A MEAL ORALLY ONCE A DAY, NOTES: 09/29 MEDICATION LIST REVIEWED AND RECONCILED WITH THE PATIENT PAST MEDICAL HISTORY LOW BACK PAIN EPILEPSY JOINT PAIN-BILATERAL KNEES PAIN BILATERAL SOLES OF FEET ANDREAS-USES CPAP NECK PAIN DM TYPE II ALLERGIES N.K.D.A. SURGICAL HISTORY APPENDECTOMY AGE 17 REPAIR LEFT MENISCUS TEAR 05/02/2016 FAMILY HISTORY FATHER: 75 YRS MOTHER: 60 YRS 2 SON(S) , 2 DAUGHTER(S) . DAD FROM COMPLICATIONS FROM SURGERY.\NMOM FROM POISON.\NPATIENT IS NOT FAMILIAR WITH FAMILY HEALTH HISTORY\NOLDEST SON-AUTISTIC. SOCIAL HISTORY GENERAL: TOBACCO USE ARE YOU A:FORMER SMOKER HOW LONG HAS IT BEEN SINCE YOU LAST SMOKED?1-5 YEARS EDUCATION LEVEL OF EDUCATION:COLLEGE BACHELOR'S DEGREE LANGUAGE LANGUAGES SPOKEN:[place] DOMESTIC VIOLENCE DO YOU FEEL SAFE IN YOUR ENVIRONMENT?YES RECREATIONAL DRUG USE DRUG USE?NO LEARNING BARRIERS / SPECIAL NEEDS BARRIERS TO LEARNING?NO HEARING IMPAIRED?YES [place] LEFT EAR VISION IMPAIRED?NO COGNITIVELY IMPAIRED?NO READINESS TO LEARN?YES LEARNING PREFERENCES?YES :DEMONSTRATION/VERBAL INSTRUCTION LEARNING CAPABILITIES PRESENT?YES EMOTIONAL BARRIERS?NO SPECIAL DEVICES?NO STEAM GENERATING POWERPLANT 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 N/A HAS THE PATIENT BEEN EDUCATED REGARDING HIS/HER PLAN OF CARE?YES HAS THE PATIENT BEEN EDUCATED REGARDING PAIN, THE RISK FOR PAIN, THE IMPORTANCE OF EFFECTIVE PAIN MANAGEMENT, AND THE PAIN ASSESSMENT PROCESS?YES LATEX QUESTIONNAIRE LATEX ALLERGY : HAVE YOU EVER DEVELOPED ANY TYPE OF REACTION AFTER HANDLING LATEX PRODUCTS SUCH RUBBER GLOVES, CONDOMS, DIAPHRAGMS, BALLOONS, SOCKS, OR UNDERWEAR?NO LATEX ALLERGY : HAVE YOU EVER DEVELOPED ANY TYPE OF REACTION DURING OR AFTER DENTAL APPOINTMENT, VAGINAL/RECTAL EXAMINATION, SURGICAL PROCEDURE, OR ANY OTHER EXPOSURE?NO LATEX RISK : HAVE YOU EVER HAD ANY DIFFICULTY BREATHING OR HIVES AFTER EATING OR HANDLING ANY FRUITS, OR VEGETABLES; SUCH KIWI, BANANAS, STONE FRUITS, OR CHESTNUTSNO LATEX RISK : DO YOU HAVE A PREVIOUS PERSONAL HISTORY OF MORE THAN NINE SURGERIES, SPINA BIFIDA, OR REPEATED CATHERIZATIONS? NO LATEX RISK : ARE YOU FREQUENTLY EXPOSED TO LATEX PRODUCTS IN YOUR OCCUPATION?NO DATE ASKED : 10/01/2019 CAFFEINE CAFFEINE USE?YES HOW OFTEN AND HOW MUCH? CUP OF COFFEE/DAY ADVANCE DIRECTIVE ADVANCE DIRECTIVE DISCUSSED WITH PATIENT:YES 10/01/2019 PT DOES NOT HAVE ANY ADVANCED DIRECTIVES AND HE DECLINED INFORMATION ON HCP AT THIS TIME AD CHURCH [id number] TAOISM ALCOHOL SCREENING DID YOU HAVE A DRINK CONTAINING ALCOHOL IN THE PAST YEAR?NO POINTS0 INTERPRETATIONNEGATIVE OCCUPATION: . 10/04/18 REVIEWED WITH PT.REVIEWED WITH PATIENT 11/07/18 1446 JSREVIEWED WITH PATIENT 09/25/2019 [facility]10[facility]19 1032 REVIEWED WITH PT. AD. HOSPITALIZATION/MAJOR DIAGNOSTIC PROCEDURE EPILEPSY X 4 REVIEW OF SYSTEMS REVIEWED BY: PROVIDER: . CONSTITUTIONAL: ANY CHANGE IN YOUR MEDICAL CONDITION? NO . CHILLS NO . FEVER NO . INFECTION: DO YOU HAVE NEW INFECTIONS? NO . DO YOU HAVE HISTORY OF MRSA? NO . MUSCULOSKELETAL: ANY NEW PATTERNS OF PAIN OR NUMBNESS? NO . GASTROENTEROLOGY: ANY NEW CHANGE IN BOWEL CONTROL? NO . GENITOURINARY: ANY NEW CHANGE IN BLADDER CONTROL? NO . IS THERE A CHANCE YOU COULD BE ? NO . HEMATOLOGY/LYMPH: DO YOU TAKE ANY BLOOD THINNERS? (FOR EXAMPLE- COUMADIN, PLAVIX, AGGRENOX, PLATEL, PRADAXA, OR XARELTO) NO . WHEN WAS YOUR LAST DOSE? DATE: TIME: . NEUROLOGY: HAVE YOU FALLEN IN THE PAST 12 MONTHS? NO . ANY NEW EXTREMITY NUMBNESS OR WEAKNESS? NO . CARDIOLOGY: DO YOU HAVE A PACEMAKER OR DEFIBRILLATOR? NO . RESPIRATORY: HAVE YOU BEEN SICK IN THE PAST WEEK? NO . FEVER NO . FLU LIKE SYMPTOMS? NO . COUGH NO . INTEGUMENTARY: DO YOU HAVE ANY RASHES OR OPEN SORES? NO . ALLERGIC/IMMUNO: ARE YOU ALLERGIC TO IV DYE? NO . ANY NEW ALLERGIES? NO . PSYCHIATRIC: DO YOU HAVE THOUGHTS OF HURTING YOURSELF OR SOMEONE ELSE? NO . ARE YOU ABUSED, NEGLECTED, OR IN AN UNSAFE ENVIRONMENT? NO . ENDOCRINOLOGY: ARE YOU DIABETIC? YES, FSBS 98 AT 0815 . OTHER: DO YOU NEED ANY PRESCRIPTIONS? NO . IF YES, PLEASE LIST: ____ . ANY NEW PROBLEMS WITH YOUR MEDICATIONS? NO . WHEN DID YOU LAST EAT? 09/30/19 2300 . WHEN DID YOU LAST DRINK? 10/01/19 0745 . WHAT DID YOU LAST DRINK? WATER . NAME OF PERSON DRIVING YOU HOME? OLEKSANDR . DO YOU HAVE ANY OTHER QUESTIONS OR CONCERNS NO PT HAS NOT HAD ANY VACCINES IN THE PAST 30 DAYS . VITAL SIGNS WT 235.6 LBS, HT 72 IN, BMI 31.95 INDEX, BP 130/62 MM HG, HR 68 /MIN, RR 18 /MIN, TEMP 97.6 F, OXYGEN SAT % 98%, SAFE IN ENV? (Y/N) Y, NA INITIALS AW 1020, REVIEWED BY: AD. ASSESSMENTS SPONDYLOSIS OF LUMBAR REGION WITHOUT MYELOPATHY OR RADICULOPATHY - M47.816 (PRIMARY) SPONDYLOSIS WITHOUT MYELOPATHY OR RADICULOPATHY, LUMBOSACRAL REGION - M47.817 TREATMENT SPONDYLOSIS OF LUMBAR REGION WITHOUT MYELOPATHY OR RADICULOPATHY [facility] FACET BLOCK (PAIN)[id number] PROCEDURES PN LUMBAR FACET BLOCK THERAPEUTIC PRE PROCEDURE DIAGNOSIS LUMBAR SPONDYLOSIS, LUMBOSACRAL SPONDYLOSIS POST PROCEDURE DIAGNOSIS LUMBAR SPONDYLOSIS, LUMBOSACRAL SPONDYLOSIS PROCEDURE BILATERAL L4-L5 AND L5-S1 LUMBAR FACET THERAPEUTIC BLOCK SURGEON DR. RAYSA ALEX CALCULATION REVIEWER NONE ANESTHESIA LOCAL WITH IV SEDATION PRE PROCEDURE NOTE THE PATIENT HAS A HISTORY OF CHRONIC LOW BACK PAIN. I EVALUATED THE PATIENT AND REVIEWED THE CHART. I WENT OVER THE RISKS, ALTERNATIVES, AND BENEFITS ASSOCIATED WITH THIS PROCEDURE. THE PATIENT WOULD LIKE TO PROCEED AND GIVES CONSENT TO PERFORM THE PROCEDURE. THE PATIENT WOULD LIKE TO MOVE FORWARD WITH IV SEDATION DUE TO DISCOMFORT, PAIN, AND ANXIETY ASSOCIATED WITH THE PROCEDURE. THE PATIENT DENIES UNEXPLAINABLE WEIGHT LOSS, FEVER, CHILLS, OR NEW CHANGES IN URINARY OR BOWEL CONTROL DESCRIPTION OF PROCEDURE THE PATIENT WAS BROUGHT TO THE PROCEDURE ROOM AND PLACED IN THE PRONE POSITION. THE LUMBOSACRAL AREA WAS CLEANED WITH CHLORAPREP SOLUTION AND DRAPED ASEPTICALLY. THE PROCEDURE WAS DONE UNDER STERILE CONDITIONS. I CHECKED LATERALITY AND THE LEVEL WHERE THE PROCEDURE WAS GOING TO BE PERFORMED WITH THE PATIENT AND THE SUPPORTING STAFF AT THE MOMENT OF THE TIME OUT IN THE PROCEDURE ROOM. UNDER FLUOROSCOPIC GUIDANCE, THE TARGET POINT WAS SELECTED AT THE RIGHT AND LEFT L4-L5 AND RIGHT AND LEFT L5-S1 FACET JOINTS. TARGET POINT WAS SELECTED AFTER LATERAL ROTATION AND TILT OF THE MAGNIFIER OF THE C-ARM. LIDOCAINE 0.5% WAS USED TO NUMB THE SKIN AND THE SUBCUTANEOUS TISSUE BELOW IT. SPINAL NEEDLES, 22-GAUGE, WERE ADVANCED UNDER FLUOROSCOPIC GUIDANCE AND FOLLOWING PATIENT FEEDBACK UNTIL THE TARGETS WERE TOUCHED. THE POSITION OF THE NEEDLES WAS VERIFIED WITH AP AND LATERAL VIEWS. AFTER PROPER POSITION OF THE NEEDLES WAS ACHIEVED, ISOVUE-M DYE 30% 0.1 ML WAS INJECTED SHOWING ADEQUATE SPREAD OF THE DYE. THEN A SOLUTION OF 1.9 ML OF BUPIVACAINE 0.125% OF KENALOG 10 MG WAS INJECTED AT EACH SITE. THERE WAS NO EVIDENCE OF BLOOD, PARESTHESIA OR CEREBROSPINAL FLUID DURING THE PROCEDURE. THE PATIENT WAS SENT TO THE RECOVERY ROOM. THE PATIENT WAS MOVING THE EXTREMITIES AND DOING WELL. THERE WAS NO COMPLICATION DURING THE PROCEDURE. PATIENT RECEIVED VERSED 2 MG AND FENTANYL 50 MCG IV DIVIDED DOSES. FACE TO FACE TIME WAS 14 MINUTES. FLUOROSCOPY TIME WAS 47 SECONDS POST PROCEDURE NOTE I AM LOOKING FOR LONG LASTING PAIN RELIEF WITH THIS INTERVENTION. THE PATIENT WILL BE SEEN IN A FOLLOW UP IN THE NEXT FEW WEEKS. INSTRUCTIONS WERE GIVEN, QUESTIONS WERE ANSWERED, AND THE PATIENT EXPRESSED UNDERSTANDING AND AGREES WITH THE PLAN. I, MALIHA WORLEY, DOCUMENTED THE ABOVE INFORMATION ACTING A SCRIBE FOR DR. ALEX. I HAVE REVIEWED THE ABOVE DOCUMENT, WRITTEN BY MALIHA WORLEY SCRTERRI AND I VERIFY THAT IT IS ACCURATE. PROCEDURE CODES [id number] INJ PARAVERT F JNT L/S 1 LEV, MODIFIERS: [id number] INJ PARAVERT F JNT L/S 2 LEV, MODIFIERS: 50 [id number] RADXPS IN END [id number] PXD [id number] MOD SED SAME PHYS/QHP 5/>YRS DISPOSITION & COMMUNICATION FOLLOW UP 3 WEEKS ELECTRONICALLY SIGNED BY RAYSA ALEX MD, MD ON 10/02/2019 AT 02:32 PM EST DISCLAIMER : THIS IS A VISIT SUMMARY EXTRACTED FROM THE [employer] CHART. IT IS NOT A COPY OF THE [employer] PROGRESS NOTE. MTDD
== END ==
LOC: M PAIN 10:15
PROVIDERS: ATTEND Anesthesiology
DX: M47.816 Spondylosis without myelopathy or radiculopathy, lumbar region (principal); M47.817 Spondylosis without myelopathy or radiculopathy, lumbosacral region; G43.909 Migraine, unspecified, not intractable, without status migrainosus; G47.33 Obstructive sleep apnea (adult) (pediatric); E11.9 Type 2 diabetes mellitus without complications; Z87.891 Personal history of nicotine dependence; Z79.899 Other long term (current) drug therapy
CPT/HCPCS: 64493; 64494; 99152; J2250; J3010; J3301; Q9967

== ENCOUNTER 2020-03-09 08:51 | Emergency (ER) | payer OTHER ==
[~2020-03-09] VITALS: Ht 165.1 cm; Wt 109.5 kg
[~2020-03-09 08:51] MED LIST changes: -BUPIVACAINE HCL 0.25% 30 ML VIAL As Ordered ONE; -ISOVUE-M 300 61% 15ML VIAL (Q9967) As Ordered ONE; -LIDOCAINE 1% SDV INJ 30 ML VIAL As Ordered ONE; -MIDAZOLAM INJ 2 MG/2 ML VIAL (J2250) As Ordered ONE; -TRIAMCINOLONE ACETONIDE SUSP 40 MG/ML VIAL (J3301) As Ordered ONE; -fentaNYL 100 MCG/2 ML INJECTION (J3010) As Ordered ONE
[2020-03-09] MEDS ORDERED: LEVE250T5 PO ×2 (09:11→09:55)
[2020-03-09] MEDS ORDERED: DIVA500T9 PO ×2 (09:11→09:58)
[2020-03-09] MEDS ORDERED: levETIRAcetam INJection 1,000 MG in D5W 100 ML IV ONE (09:15)
[2020-03-09] MEDS ORDERED: DIVALPROEX 500MG *ER* TAB PO ONE (10:30)
[2020-03-09 11:30] VITALS: BP 139/87
== END 2020-03-09 11:50 | disposition home or self-care (01) ==
LOC: M ED 08:51 → EDBD 08:51 → M ED 11:50
DX: G40.909 Epilepsy, unspecified, not intractable, without status epilepticus (principal); Z91.138 Patient's unintentional underdosing of medication regimen for other reason; E11.9 Type 2 diabetes mellitus without complications; G47.33 Obstructive sleep apnea (adult) (pediatric); G89.4 Chronic pain syndrome; Z87.891 Personal history of nicotine dependence; Z79.899 Other long term (current) drug therapy; Z79.84 Long term (current) use of oral hypoglycemic drugs
CPT/HCPCS: 80047; 80164; 80180; 96374; 99284; J1953

== ENCOUNTER → 2020-10-20 | Outpatient (CLI) | payer OTHER ==
[~2020-10-20] MED LIST changes: +DIVA500T9 PO; +LEVE250T5 PO
--- NOTE | 2020-10-22 00:52 | ECWPNPC ---
PATIENT NAME: VENESSA MARINO MWAMBANDJ : 1975 GENDER: MALE VISIT DATE: 10/20/2020 DISCHARGE DATE: 10/20/20 1452 VISIT LOCKED DATE TIME: PHYSICIAN: LE KC RESOURCE: LE KC REASON FOR APPOINTMENT 1. LOW BACK HISTORY OF PRESENT ILLNESS DEPRESSION SCREENIN-YEAR-OLD MALE IN FOR CHRONIC PAIN FOLLOW-UP. HE RATES HIS PAIN CURRENTLY AT A 6 OUT OF 10 AND DESCRIBES IT CONTINUOUS AND SHARP. PATIENT HAS HAD LUMBAR EPIDURAL STEROID INJECTIONS IN THE PAST WITH GOOD RESULTS AND WE WILL DISCUSS REPEAT PROCEDURES TODAY. PHQ-9 LITTLE INTEREST OR PLEASURE IN DOING THINGSSEVERAL DAYS FEELING DOWN, DEPRESSED, OR HOPELESSSEVERAL DAYS TROUBLE FALLING OR STAYING ASLEEP, OR SLEEPING TOO MUCHSEVERAL DAYS FEELING TIRED OR HAVING LITTLE ENERGYSEVERAL DAYS POOR APPETITE OR OVEREATING SEVERAL DAYS FEELING BAD ABOUT YOURSELF-OR THAT YOU ARE A FAILURE OR HAVE LET YOURSELF OR YOUR FAMILY DOWN NOT AT ALL TROUBLE CONCENTRATING ON THINGS, SUCH READING THE NEWSPAPER OR WATCHING TELEVISION SEVERAL DAYS MOVING OR SPEAKING SO SLOWLY THAT OTHER PEOPLE COULD HAVE NOTICED. OR THE OPPOSITE- BEING SO FIDGETY OR RESTLESS THAT YOU HAVE BEEN MOVING AROUND A LOT MORE THAN USUALSEVERAL DAYS THOUGHTS THAT YOU WOULD BE BETTER OFF , OR OF HURTING YOURSELF IN SOME WAY?NOT AT ALL TOTAL SCORE:7 INTERPRETATIONMILD DEPRESSION PHQ-2 (2015 EDITION) LITTLE INTEREST OR PLEASURE IN DOING THINGS?SEVERAL DAYS FEELING DOWN, DEPRESSED, OR HOPELESS?SEVERAL DAYS TOTAL SCORE2 GENERAL: -. FALL RISK SCREENING: SCREENING :NO FALLS REPORTED IN THE LAST YEAR PAIN SCREENING: PATIENT HAS A COMPLAINT OF ACUTE OR CHRONIC PAIN :YES LOCATION OF PAIN:LOW BACK INTENSITY OF PAIN (SCALE OF 1 TO 10):6 WHAT DOES YOUR PAIN FEEL LIKE:CONTINOUS, SHARP DURATION:CONSTANT PAIN IS INCREASED BY:OTHERS SITTING TOO LONG, BENDING PAIN IS DECREASED BY:USE OF PAIN MEDICATIONS, OTHERS REST, ICE, HEAT NURSING NOTE: -. PAIN CENTER INTAKE QUESTIONS: DO YOU HAVE A HISTORY OF MRSA? :NO DO YOU TAKE A BLOOD THINNERS? :NO DO YOU HAVE ANY BLEEDING DISORDERS? :NO ANY NEW NUMBNESS OR WEAKNESS IN YOUR LEGS OR ARMS? :NO ANY PACEMAKER,DEFIBRILLATOR, OR DORSAL COLUMN STIMULATOR? :NO DO YOU HAVE ANY RASHES OR OPEN SORES? :NO ARE YOU ALLERGIC TO IV DYE? :NO ARE YOU DIABETIC? :YES ANY NEW PROBLEMS WITH YOUR MEDICATIONS? :NO HAVE YOU RECEIVED A VACCINE IN THE PAST 30 DAYS? :NO DO YOU PLAN TO RECEIVE A VACCINE IN THE NEXT 21 DAYS? :NO DO YOU NEED ANY PRESCRIPTION? :NO DO YOU TAKE ANY IMMUNOSUPPRESSIVE MEDICATIONS? :NO IS THERE A CHANCE YOU COULD BE ? :NO ARE YOU BREAST FEEDING? :NO CURRENT MEDICATIONS TAKING AMITRIPTYLINE HCL 25 MG TABLET 1 TABLET ORALLY BEFORE BEDTIME TAKING RIBOFLAVIN 100 MG TABLET 1 TABLET ORALLY ONCE A DAY TAKING CELECOXIB 100 MG CAPSULE 1 CAPSULE WITH FOOD ORALLY BID PRN TAKING APTIOM 600 MG TABLET 1 TABLET ORALLY TWICE A DAY TAKING KEPPRA 250 MG TABLET 1 TABLET ORALLY TWICE A DAY TAKING DEPAKOTE 500 MG TABLET DELAYED RELEASE 1 TABLET ORALLY TWICE A DAY TAKING METFORMIN HCL 500 MG TABLET 1 TABLET WITH A MEAL ORALLY ONCE A DAY TAKING VIAGRA 25 MG TABLET 1 TABLET NEEDED ORALLY ONCE A DAY MEDICATION LIST REVIEWED AND RECONCILED WITH THE PATIENT PAST MEDICAL HISTORY LOW BACK PAIN EPILEPSY JOINT PAIN-BILATERAL KNEES PAIN BILATERAL SOLES OF FEET ANDREAS-USES CPAP NECK PAIN DM TYPE II ALLERGIES N.K.D.A. SURGICAL HISTORY APPENDECTOMY AGE 17 REPAIR LEFT MENISCUS TEAR 05/02/2016 FAMILY HISTORY FATHER: 75 YRS MOTHER: 60 YRS 2 SON(S) , 2 DAUGHTER(S) . DAD FROM COMPLICATIONS FROM SURGERY.\\NMOM FROM POISON.\\NPATIENT IS NOT FAMILIAR WITH FAMILY HEALTH HISTORY\\NOLDEST SON-AUTISTIC. SOCIAL HISTORY GENERAL: TOBACCO USE ARE YOU A:FORMER SMOKER HOW LONG HAS IT BEEN SINCE YOU LAST SMOKED?1-5 YEARS LATEX QUESTIONNAIRE LATEX ALLERGY : HAVE YOU EVER DEVELOPED ANY TYPE OF REACTION AFTER HANDLING LATEX PRODUCTS SUCH RUBBER GLOVES, CONDOMS, DIAPHRAGMS, BALLOONS, SOCKS, OR UNDERWEAR?NO LATEX ALLERGY : HAVE YOU EVER DEVELOPED ANY TYPE OF REACTION DURING OR AFTER DENTAL APPOINTMENT, VAGINAL/RECTAL EXAMINATION, SURGICAL PROCEDURE, OR ANY OTHER EXPOSURE?NO LATEX RISK : HAVE YOU EVER HAD ANY DIFFICULTY BREATHING OR HIVES AFTER EATING OR HANDLING ANY FRUITS, OR VEGETABLES; SUCH KIWI, BANANAS, STONE FRUITS, OR CHESTNUTSNO LATEX RISK : DO YOU HAVE A PREVIOUS PERSONAL HISTORY OF MORE THAN NINE SURGERIES, SPINA BIFIDA, OR REPEATED CATHERIZATIONS? NO LATEX RISK : ARE YOU FREQUENTLY EXPOSED TO LATEX PRODUCTS IN YOUR OCCUPATION?NO DATE ASKED : 10/20/2020 ALCOHOL SCREENING DID YOU HAVE A DRINK CONTAINING ALCOHOL IN THE PAST YEAR?NO POINTS0 INTERPRETATIONNEGATIVE RECREATIONAL DRUG USE DRUG USE?NO CAFFEINE CAFFEINE USE?YES HOW OFTEN AND HOW MUCH? 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 N/A HAS THE PATIENT BEEN EDUCATED REGARDING HIS/HER PLAN OF CARE?YES HAS THE PATIENT BEEN EDUCATED REGARDING PAIN, THE RISK FOR PAIN, THE IMPORTANCE OF EFFECTIVE PAIN MANAGEMENT, AND THE PAIN ASSESSMENT PROCESS?YES ADVANCE DIRECTIVE ADVANCE DIRECTIVE DISCUSSED WITH PATIENT:YES PT DOES NOT HAVE ANY ADVANCED DIRECTIVES AND HE DECLINED INFORMATION ON HCP AT THIS TIME AD 10/04/18 REVIEWED WITH PT.REVIEWED WITH PATIENT 11/07/18 1446 JSREVIEWED WITH PATIENT 09/25/2019 LAS10/01/19 1032 REVIEWED WITH PT. AD. HOSPITALIZATION/MAJOR DIAGNOSTIC PROCEDURE EPILEPSY X 4 REVIEW OF SYSTEMS CONSTITUTIONAL: ANY RECENT FEVER NO . CHILLS NO . WEIGHT CHANGE OF UNKNOWN REASONS NO . GASTROENTEROLOGY: NEW UNEXPLAINABLE CHANGES IN BOWEL CONTROL NO . CONSTIPATION NO . GENITOURINARY: ANY NEW CHANGE IN BLADDER CONTROL? NO . NEUROLOGY: NEW ONSET DIZZINESS OR NEUROLOGICAL CHANGES NOT MENTIONED NO . NEW NUMBNESS OR PAIN PATTERNS NOT MENTIONED AND PERTINENT TO TODAY'S VISIT NO . CARDIOLOGY: NEW CHEST PRESSURE NO . NEW CHEST PAIN NO . RESPIRATORY: UNEXPLAINABLE COUGH NO . NEW SHORTNESS OF BREATH NO . VITAL SIGNS WT 247.0 LBS, HT 72 IN, BMI 33.50 INDEX, BP 138/87 MM HG, HR 73 /MIN, RR 18 /MIN, TEMP 97.1 F, OXYGEN SAT % 97%, SAFE IN ENV? (Y/N) YES, NA INITIALS AW 1415, REVIEWED BY: SIDRAJREVIEWED 10/20/2020 Noé CURTIS RN. EXAMINATION GENERAL EXAMINATION: GENERALNO ACUTE DISTRESS, WELL NOURISHED AND HYDRATED. PSYCHAPPROPRIATE MOOD AND AFFECT . LUNGS:CLEAR TO AUSCULTATION BILATERALLY, NO WHEEZES, RHONCHI, RALES. HEART:NO MURMURS, REGULAR RATE AND RHYTHM. ASSESSMENTS INTERVERTEBRAL DISC DISORDER WITH RADICULOPATHY OF LUMBAR REGION - M51.16 (PRIMARY) TREATMENT INTERVERTEBRAL DISC DISORDER WITH RADICULOPATHY OF LUMBAR REGION [facility] MRI LUMBAR W/O CONTRAST (CPT [id number] NOTES: 44-YEAR-OLD MALE IN FOR CHRONIC PAIN FOLLOW-UP. GIVEN PRESENTING SYMPTOMS RECOMMEND GETTING AN UPDATED MRI WITH FOLLOW-UP THEREAFTER. PATIENT HAS EXPRESSED UNDERSTANDING OF AND WAS IN AGREEMENT WITH TREATMENT PLAN. GIVEN TIME TO ASK QUESTIONS AND EXPRESS CONCERNS. OTHERS NOTES: THIS GIS GEOGRAPHER SPOKE WITH PROVIDER REGARDING RESULTS OF PHQ9- PATIENT STATES TI=O THIS GIS GEOGRAPHER THAT HE HAS SPOKEN WITH THERAPIST IN THE PAST AND KNOWS HE CAN CONTACT THERAPIST THROUGH [place], STATES HE KNOWS THAT IF HE FEELS LIKE HE NEEDS ASSISATNCE OR " SOMEONE TO TALK TO" HE WILL CONTACT THERAPIST THROUGH [place]. 10/20/2020 Noé CURTIS RN. DISPOSITION & COMMUNICATION FOLLOW UP POST IMAGING (REASON: MRI LUMBAR SPINE) ELECTRONICALLY SIGNED BY NASRIN SYKES ON 10/21/2020 AT 01:32 PM EST DISCLAIMER : THIS IS A VISIT SUMMARY EXTRACTED FROM THE [email or web address] CHART. IT IS NOT A COPY OF THE [email or web address] PROGRESS NOTE. [email or web address]
== END ==
LOC: M PAIN 14:15
PROVIDERS: ATTEND Family Medicine
DX: M51.16 Intervertebral disc disorders with radiculopathy, lumbar region (principal); G89.29 Other chronic pain; E11.9 Type 2 diabetes mellitus without complications; G40.909 Epilepsy, unspecified, not intractable, without status epilepticus; G47.33 Obstructive sleep apnea (adult) (pediatric); Z87.891 Personal history of nicotine dependence; Z79.84 Long term (current) use of oral hypoglycemic drugs; Z79.899 Other long term (current) drug therapy

== ENCOUNTER → 2020-11-10 | Outpatient (CLI) | payer OTHER ==
[~2020-11-10] MED LIST changes: -AMIT25TA PO; +AMIT25TA17 PO
--- NOTE | 2020-11-10 18:00 | REPVR ---
PROCEDURE INFORMATION: Exam: MR Lumbar Spine Without Contrast. Exam date and time: 11/10/2020 5:33 PM Age: 44 years old Clinical indication: Low back pain; Additional info: Intervertebral disc disorder w/ radiculopathy of ls spine TECHNIQUE: Imaging protocol: Multiplanar magnetic resonance images of the lumbar spine without intravenous contrast. COMPARISON: CT Spine, lumbar w/o contrast 09/03/2018 9:52 AM FINDINGS: Vertebrae: There is no fracture. Vertebral alignment is normal. Stir images demonstrate no evidence of a marrow infiltrating. Spinal cord: The lower thoracic spinal cord, conus and cauda equina are normal. L1-L2: No significant disc disease. No significant spinal canal stenosis. No neural foraminal stenosis. L2-L3: No significant disc disease. No significant spinal canal stenosis. No neural foraminal stenosis. L3-L4: No disc bulge. Mild facet hypertrophy. No central or foraminal stenosis. L4-L5: Minimal disc bulge. Facet hypertrophy with minimal foraminal stenosis. No central stenosis. L5-S1: No disc bulge. Mild facet hypertrophy. No central or foraminal stenosis. Soft tissues: There is no paraspinous or intraspinal mass, hemorrhage or fluid collection. IMPRESSION: 1. No acute findings. 2. Minimal degenerative findings at L4-L5 Electronically signed by: Bhavik Collins On 11/10/2020 18:00:01 PM
== END ==
LOC: M RAD 16:44
PROVIDERS: ATTEND Family Medicine
DX: M51.36 Other intervertebral disc degeneration, lumbar region (principal); M51.16 Intervertebral disc disorders with radiculopathy, lumbar region

== ENCOUNTER 2021-03-22 13:54 | Emergency (ER) | payer OTHER ==
[~2021-03-22] VITALS: Ht 188 cm; Wt 109.3 kg
[2021-03-22] MEDS ORDERED: KETOROLAC 60MG 2ML VIAL IM ONE (17:50)
[2021-03-22] MEDS ORDERED: NAPR-885 PO (17:51)
[2021-03-22] MEDS ORDERED: METH-1165 PO (17:51)
[2021-03-22 18:15] VITALS: BP 138/67
== END 2021-03-22 18:20 | disposition home or self-care (01) ==
LOC: M ED 13:54
DX: M54.5 Low back pain (principal); E11.9 Type 2 diabetes mellitus without complications; E78.5 Hyperlipidemia, unspecified; G47.33 Obstructive sleep apnea (adult) (pediatric); K59.00 Constipation, unspecified; G40.909 Epilepsy, unspecified, not intractable, without status epilepticus; F41.9 Anxiety disorder, unspecified; F33.9 Major depressive disorder, recurrent, unspecified; Z79.899 Other long term (current) drug therapy
CPT/HCPCS: 96372; 99283; J1885